=== PATIENT | male | born 1940 | race African-American/Black ===

== ENCOUNTER 2016-08-07 12:41 | Inpatient (IN) ==
[2016-08-07] MEDS ORDERED: CARDIZEM IV ONE (13:16)
[2016-08-07 13:47] LABS: MANUAL DIFF NEEDED? NO
[2016-08-07 13:49] LABS: BASO% 0.1 % (0.0-0.8); EOS# 0.08 X1000 (0.0-0.7); HEMOGLOBIN 14.1 g/dL (14.0-18.0); LYMPH# 1.35 X1000 (1.2-3.4); LYMPH% 16.2 % (20.5-51.1); MCH 36.1 PG (27-31); MCHC 35.3 g/dL (33-37); MCV 102.3 FL (81-99); MONO# 0.74 X1000 (0.11-0.59); MONO% 8.9 % (1.7-9.3); MPV 10.8 FL (7.4-10.4); NEUT% 73.8 % (42.2-75.2); PLT 109 X1000 (130-400); RBC 3.91 XMIL (4.7-6.1)
[2016-08-07 14:25] LABS: POTASSIUM 4.1 mmol/L (3.5-5.1); TOTAL BILIRUBIN 0.51 mg/dL (0.20-1.00); TOTAL PROTEIN 6.7 g/dL (6.3-8.3)
[2016-08-07 14:38] LABS: INR 1.12; PROTIME 11.9 Seconds (9.2-11.7); PTT 25.4 Seconds (22.0-36.0)
--- NOTE | 2016-08-07 14:53 | Diag Imaging Result Document ---
PROCEDURE NAME: CHEST-PORTABLE - 08/07/2016 SINGLE FRONTAL RADIOGRAPH OF THE CHEST: COMPARISON: 05/16/2015. FINDINGS: There is a stable calcified granuloma in the right lower lung zone. The lungs are clear otherwise. Cardiac silhouette is somewhat prominent but stable. Central vasculature is unremarkable. IMPRESSION: Stable cardiomegaly. No definite acute pathology.
--- NOTE | 2016-08-07 15:00 | ED EKG INTERP ---
This chart was entered by Paradise Salgado Scribe, acting as scribe for Ricci Fatima MD. EKG Interpretation - EKG Time of EKG reading by physician:: 12:56 EKG Read and Signed by:: Ricci Fatima EKG Interpretation (*Must complete 3 of following elements*): Abnormal Rate: 109 Rhythm: A-FLUTTER W/ VARIABLE AV BLOCK W/PVC'S AND PAC'S QRS: other (POSSIBLE INFERIOR INFARCT, AGE UNDETERMINED) ST Wave: normal This chart was documented by the indicated scribe, (Paradise Salgado Scribe) and accurately reflects the services I performed and decisions made by Kushal wong Wenli X, MD, as attested by the provider's signature.
--- NOTE | 2016-08-07 15:02 | PROVIDER DOCUMENTATION ---
This chart was entered by Paradise Salgado Scribe, acting as scribe for Ricci Fatima MD. HPI-General Adult - General Chief Complaint: Weakness Stated Complaint: WEAKNESS Time Seen by Provider: 08/07/16 12:58 Source: patient, family Allergies/Adverse Reactions: Patient Allergies Allergy/AdvReac Type Severity Reaction Status Date / Time Penicillins Allergy HIVES Verified 02/28/15 13:14 Home Medications: Home Medication List Medication Instructions Recorded Confirmed Last Taken Type Amiodarone [Cordarone] 200 mg PO DAILY 09/15/14 08/07/16 08/07/16 History Carvedilol [Coreg] 6.25 mg PO BID 09/15/14 08/07/16 08/07/16 History Hydralazine [Apresoline] 10 mg PO DAILY 09/15/14 08/07/16 08/07/16 History Isosorbide Dinitrate 10 mg PO DAILY 09/15/14 08/07/16 08/07/16 History Spironolactone 25 mg PO DAILY 09/15/14 08/07/16 08/07/16 History - History of Present Illness -Gen Adult Nature of Presenting Problems: PT IS A 76YOM PRESENTING TO THE ED C/O WEAKNESS. PTS FAMILY STATES OVER THE PAST WEEK PT HAS BECAME INCREASINGLY WEAKER THAN HIS NORMAL BASELINE. PT DENIES CP, SOB, N/V/D OR OTHER COMPLAINTS AT THIS TIME. PT IS NOTED TO HAVE NEW ONSET A -FIB W/RVR ON EKG. NO OTHER COMPLAINTS AT THIS TIME. Location of Pain/Injury: reports: none Pain Radiation: reports: no radiation Quality of Pain: reports: none Severity: reports: mild, moderate Onset/Duration: reports: 1 week ago Timing: reports: still present, getting worse Context/Activities at Onset: reports: light activity Modifying Factors: improves with: nothing Associated Symptoms: reports: weakness, trouble walking. denies: chest pain, diaphoresis, diarrhea, sinus congestion/drainage, nausea, shortness of breath, syncope, vomiting Similar Symptoms Previously?: No Recently seen or treated by another doctor?: No Review of Systems - Adult - REVIEW OF SYSTEMS - ADULT Constitutional: reports: no symptoms reported Eyes: reports: see HPI, other (JAUNDICE APPEARENCE IN HIS SCLERA) Ears, Nose, Mouth & Throat: reports: no symptoms reported Cardiovascular: reports: no symptoms reported Respiratory: reports: no symptoms reported Gastrointestinal: reports: no symptoms reported Genitourinary: reports: no symptoms reported Musculoskeletal: reports: see HPI, muscle weakness. denies: joint pain, muscle aches Integumentary: reports: no symptoms reported Neurological: reports: no symptoms reported Psychiatric: reports: no symptoms reported Endocrine: reports: no symptoms reported Hematologic/Lymphatic: reports: no symptoms reported Allergic/Immunologic: reports: no symptoms reported All Other Systems: Reviewed and Negative Past History - Adult - PAST MEDICAL HISTORY-ADULT Review of Records: reports: Old Records Reviewed, Nursing Assessment Review, Medications Reviewed, Social history reviewed & non-contributory. Major Childhood Illnesses: reports: denies history Cardiovascular: reports: denies history Respiratory: reports: denies history Gastrointestinal: reports: denies history Obstetrical/Gynecological: reports: denies history Genitourinary: reports: denies history Musculoskeletal: reports: denies history Neurological: reports: denies history Endocrine/Immune: reports: denies history Other Conditions: reports: denies history - IMMUNIZATION STATUS Childhood Immunizations: See Nurse Assessment Flu Vaccine: See Nurse Assessment - FAMILY HISTORY Family History: reviewed, not pertinent - SOCIAL HISTORY Smoking: cigarettes, less than 1 pack/day Provider spent 3-5 mins advising pt. on dangers of tobacco.: Discussed manners to quit use, and f/u contacts for add'l counseling. Substance Use: none/never, alcohol Alcohol Use Frequency: every day Number of drinks per typical drinking period:: 5-10 drinks Living Situation: family Physical Exam-General - PHYSICAL EXAM-ADULT Initial Vital Signs Reviewed: Yes - CONSTITUTIONAL General Appearance: appears well, alert, no apparent distress - EYES Eyes: PERRL/EOMI, scleral icterus - HEAD, EARS, NOSE, MOUTH & THROAT HENMT: normocephalic/atraumatic, moist mucous membranes, normal ENT inspection, TMs normal, pharynx normal - NECK Neck: non-tender, full range of motion, supple, normal inspection - RESPIRATORY Respiratory: chest non-tender, lungs clear, normal breath sounds, no pleuratic chest pain, no respiratory distress, no accessory muscle use - CARDIOVASCULAR Cardiovascular: normal peripheral pulses, no edema, no gallop, no JVD, no murmur , other (A-FIB W/RVR). negative: regular rate, rhythm - GASTROINTESTINAL (ABDOMEN) Abdominal Exam: normal bowel sounds, non tender, soft, no organomegaly, no pulsatile mass - LYMPHATIC Lymphatic: no adenopathy - MUSCULOSKELETAL Back Exam: normal inspection, no CVA tenderness, no vertebral tenderness Extremity: non-tender, no pedal edema, no calf tenderness, normal capillary refill, pelvis stable. 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 Sol for Dr. Chiu Consult Disposition: Admit Departure - Departure Time of Disposition Decision: 15:00 DIAGNOSIS: Elevated troponin A-fib Qualifiers: Atrial fibrillation type: unspecified Qualified Code(s): I48.91 - Unspecified atrial fibrillation CHF exacerbation Qualifiers: Congestive heart failure type: unspecified congestive heart failure type Qualified Code(s): I50.9 - Heart failure, unspecified Disposition: ADMITTED INPATIENT 09 Certified Medical Emergency: Emergent Condition: Stable - Critical Care Note This patient required my direct & personal management of CC.: No This chart was documented by the indicated scribe, (Paradise Salgado Scribe) and accurately reflects the services I performed and decisions made by me, Ricci Fatima MD, as attested by the provider's signature.
[2016-08-07 15:11] LABS: URINE SOURCE CLEAN CATCH
[2016-08-07 15:14] LABS: BILIRUBIN URINE NEGATIVE (NEGATIVE); BLOOD URINE NEGATIVE (NEGATIVE); COLOR YELLOW; GLUCOSE URINE NEGATIVE (NEGATIVE); LEUKOCYTES URINE MODERATE (NEGATIVE); NITRITE URINE NEGATIVE (NEGATIVE); PROTEIN URINE TRACE mg/dL (NEGATIVE); SP GRAVITY URINE 1.013; TURBIDITY URINE CLEAR (CLEAR); UROBILINOGEN URINE NORMAL (NORMAL)
[2016-08-07 15:16] LABS: URINE MICRO REVIEW NEEDED? YES
[2016-08-07 15:22] LABS: UR EPITHELIAL CELLS <10 /HPF (<10); URINE BACTERIA NEGATIVE /HPF; URINE CULTURE NEEDED? YES; URINE RBC <10 /HPF (<10)
[2016-08-07 15:34] LABS: URINE CASTS NONE SEEN
[2016-08-07] MEDS ORDERED: M.V.I.-12 10 ML, FOLIC ACID 1 MG, MAGNESIUM SULFATE 1 GM, THIAMINE 100 MG in NS 1,000 ML IV ONE (18:00)
[2016-08-07] MEDS: SODIUM CHLORIDE 0.9% INJ SCH (18:02)
[2016-08-07] MEDS: PROTONIX IV SCH (18:02)
[2016-08-07] MEDS: NICODERM PATCH TD SCH (18:02)
--- NOTE | 2016-08-07 18:13 | HISTORY AND PHYSICAL ---
CHIEF COMPLAINT: Weakness. HISTORY OF PRESENT ILLNESS: Mr. Martinez is a 76-year-old gentleman, patient of Dr. Chiu, not doing well the last few days. The patient was getting increasingly weak, unsteady. The patient is vague and a poor historian. The patient claims he had a few falls at home. In the emergency room, patient found to have atrial fibrillation with rapid ventricular response, chronic kidney disease, and renal failure. Patient lost significant weight. Patient claims he was very weak, had back pain, leg pain. He was not able to take care of himself, and we decided to admit patient for further care. Patient did have deterioration of his renal function. The patient denied any typical chest pain. He did have cough with scant sputum production. He denied any hemoptysis. No pleuritic type of chest pain. Vague abdominal pain. Mild nausea. No vomiting. The patient denied any diarrhea, blood or mucus in the stool. No dysuria or hematuria. Complaining of pain in the legs. No heat or cold intolerance. Patient is very vague and a poor historian. Generalized weakness. No focal weakness. No seizure type episode. Patient claims he drinks alcohol daily, at least a half pint of whiskey. His last drink was on . ALLERGIES: Penicillin. HOME MEDICATIONS: 1. Amiodarone. 2. Hydralazine. 3. Aldactone. 4. Coreg. 5. Imdur. PAST MEDICAL HISTORY: Significant for chronic kidney disease stage 2, congestive heart failure, ejection fraction was 30, NIDDM, hypertension, hyperlipidemia, spondylosis, paroxysmal atrial fibrillation, tobacco abuse, history of prostate cancer, and history of colon cancer. PAST SURGICAL HISTORY: Patient had right hemicolectomy for colon cancer and cancer in the cecum, back surgery, penile implant, radical prostatectomy for prostate cancer. SOCIAL HISTORY: Patient does smoke, drinks alcohol, denied substance abuse. FAMILY HISTORY: Noncontributory. Mother of stroke at age 48. Father of old age at 80. REVIEW OF SYSTEMS: As per HPI. PHYSICAL EXAMINATION: GENERAL: Elderly gentleman in mild distress. When patient in the ER, patient had telemetry showing atrial fibrillation with rapid VR. VITAL SIGNS: Blood pressure 117/70. Pulse 85. Respirations 18. Temperature 94.5. SKIN: Senile turgor. No rash or petechiae. HEENT: Head atraumatic, normocephalic. [place] conjunctivae. [place] sclerae. Extraocular muscle movement normal. Fundi cannot be penetrated. Good oral hygiene. No tonsillopharyngeal congestion. No exudate. Ears and nose benign. NECK: Supple. No JVD, thyromegaly, or lymphadenopathy. CHEST: Bilateral good air entry present. No rales. A few basal crepitations. CARDIOVASCULAR: S1 and S2 heard, 2/6 systolic murmur at the apex, no gallop or thrill. ABDOMEN: Soft. Mild epigastric tenderness. No guarding or rigidity. EXTREMITIES: No cyanosis or clubbing. No acute DVT. No acute vascular compromise. 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 Able to move all four limbs. LABORATORY DATA: WBC count 8.34, hemoglobin 14.1, hematocrit 40, platelet count 109. PT INR 1.12. PTT was 25.4. D-dimer was 2.94. BUN 26, creatinine 2.9. Troponin minimally elevated. Pro BNP 10,795. Urinalysis: Moderate leukocytes, 10-20 WBCs, suggestive of UTI. PROBLEMS: 1. Weakness. Patient does have multiple medical problems. 2. Atrial fibrillation with rapid ventricular response. Patient converted with one dose of IV Cardizem. 3. Patient does have urinary tract infection. 4. Deterioration in renal function suggestive of acute on chronic kidney disease. 5. Alcohol abuse. 6. Noninsulin dependent diabetes mellitus. 7. Hypertension. 8. Patient had elevated D-dimer. I am going to consider venous Doppler. We will not be able to get CT of the pulmonary artery. I will get vitamin B12 and folate level. Fall precautions. GI and DVT prophylaxis. Monitor patient on telemetry. Oxygen as per protocol. Overall plan discussed with the patient. Discussed at length alcohol and smoking cessation. Patient did have elevated troponin. Will do serial EKG and cardiac isoenzymes. Patient admission EKG noted. cc: MD Dennis Gonsales MD
[2016-08-07] MEDS: COREG PO SCH (19:31)
[2016-08-07] MEDS: ISORDIL PO SCH (19:31)
[2016-08-08] MEDS: COREG PO SCH ×3 (02:01→21:54)
[2016-08-08] MEDS: ISORDIL PO SCH ×3 (02:01→21:54)
[2016-08-08 05:24] LABS: MANUAL DIFF NEEDED? NO
[2016-08-08 05:50] LABS: BASO% 0.3 % (0.0-0.8); EOS# 0.13 X1000 (0.0-0.7); EOS% 2.1 % (0.0-10.0); HEMATOCRIT 34.2 % (42.0-52.0); LYMPH# 1.08 X1000 (1.2-3.4); LYMPH% 17.5 % (20.5-51.1); MCH 35.4 PG (27-31); MCHC 35.1 g/dL (33-37); MCV 100.9 FL (81-99); MONO# 0.45 X1000 (0.11-0.59); MONO% 7.3 % (1.7-9.3); MPV 10.6 FL (7.4-10.4); NEUT% 72.8 % (42.2-75.2); PLT 111 X1000 (130-400); RBC 3.39 XMIL (4.7-6.1)
[2016-08-08 05:56] LABS: FREE T4 1.29 ng/dL (0.93-1.70)
[2016-08-08 06:01] LABS: ALBUMIN 2.5 g/dL (3.5-5.0); TOTAL BILIRUBIN 0.35 mg/dL (0.20-1.00); TOTAL PROTEIN 5.3 g/dL (6.3-8.3)
[2016-08-08] MEDS ORDERED: CYANOCOBALAMIN IM ONE (06:32)
[2016-08-08] MEDS: ROCEPHIN 1 GM/NS 1 GM/50 ML IVPB IV SCH (07:05)
--- NOTE | 2016-08-08 07:08 | PROGRESS NOTE ---
DATE: 08/08/2016 SUBJECTIVE: Mr. Martinez is doing some better. He denied any chest pain. No palpitations. Patient was able to rest well. No symptoms suggestive of alcohol withdrawal. Mild cough, no expectoration. The patient is weak and poor historian. No dysuria or hematuria. Patient admitted with atrial fibrillation with rapid ventricular response. The patient also had elevated troponin. PHYSICAL EXAMINATION: Vital Signs: His vital signs noted. Neck: Supple. No JVD. Lungs: Bilateral good air entry present. No rales. CVS: S1 and S2 heard. A 2/6 systolic murmur at the apex. Abdomen: Soft. No distention. Bowel sounds present. Extremities: No cyanosis, clubbing. No acute DVT. 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 Able to move all 4 limbs. CONSIDERATION: 1. Atrial fibrillation with rapid ventricular response. Clinically, patient is doing better. Now in sinus rhythm with a rate of 63. The patient is on amiodarone. We will continue. 2. The patient had elevated D-dimer. I am going to get venous Doppler for further evaluation. 3. Acute on chronic kidney disease. The patient is getting gentle hydration with banana bag. 4. Alcohol abuse. 5. Urinalysis showing a urinary tract infection. The patient claims penicillin making him weak. He did not remember serious allergies. As per the emergency room, the patient had some high. I am going to try Rocephin. We will watch him closely for allergic reaction. With amiodarone on board, I am careful with quinolones. 6. Other problems include alcohol abuse. The patient had folate and B12 deficiency, and we will supplement. Electrolytes done today, BUN 25, creatinine 2.5. TSH 2.74, free T4 1.29. D- dimer was elevated. We will get venous Doppler for further evaluation. I will also get a V/Q scan to make sure no pulmonary embolism. cc: MD Dennis Gonsales MD
[2016-08-08] MEDS: NICODERM PATCH TD SCH (08:49)
[2016-08-08] MEDS: FOLIC ACID PO SCH (08:50)
[2016-08-08] MEDS: ATIVAN PO SCH ×3 (08:50→17:47)
[2016-08-08] MEDS: CORDARONE PO SCH (08:50)
[2016-08-08] MEDS ORDERED: ATIVAN PO SCH (09:00)
--- NOTE | 2016-08-08 11:16 | Diag Imaging Result Document ---
PROCEDURE NAME: LUNG SCAN / VQ - 08/08/2016 COMPARISON: None available. FINDINGS: A dose of 34.7 mCi of aerosolized technetium-99m DTPA was administered for the ventilation portion of the scan and 5.6 mCi of technetium-99m MAA was administered for the perfusion portion of the scan intravenously. No perfusion defects are identified on the perfusion portion of the scan. The ventilation portion the scan is also unremarkable. IMPRESSION: Negative V/Q scan.
[2016-08-08] MEDS: PROTONIX IV SCH (17:50)
[2016-08-08] MEDS: SODIUM CHLORIDE 0.9% INJ SCH (17:50)
--- NOTE | 2016-08-09 05:57 | EKG Report ---
Test Performed on : 08/08/2016 06:40:01 AM Test Reason : CP Blood Pressure : / mmHG Vent. Rate : 080 BPM Atrial Rate : 080 BPM P-R Int : 000 ms QRS Dur : 126 ms QT Int : 404 ms P-R-T Axes : 000 066 127 degrees QTc Int : 465 ms Atrial flutter. Nonspecific intraventricular block Nonspecific T wave abnormality Abnormal ECG When compared with ECG of 07-AUG-2016 12:56, Current undetermined rhythm precludes rhythm comparison, needs review QT has lengthened Confirmed by Raul LIN, Pawan Seth ([id number]) on 08/09/2016 11:23:12 AM
--- NOTE | 2016-08-09 06:14 | EKG Report ---
Test Performed on : 08/07/2016 12:56:40 PM Test Reason : WEAKNESS Blood Pressure : / mmHG Vent. Rate : 109 BPM Atrial Rate : 250 BPM P-R Int : 000 ms QRS Dur : 122 ms QT Int : 290 ms P-R-T Axes : 000 048 123 degrees QTc Int : 390 ms Atrial flutter. with variable AV block. with premature ventricular or aberrantly conducted complexes . Possible Inferior infarct , age undetermined Abnormal ECG When compared with ECG of 15-MAY-2015 19:22, Atrial flutter. has replaced Sinus rhythm. Vent. rate has increased BY 52 BPM Borderline criteria for Inferior infarct are now present ST no longer elevated in Inferior leads Nonspecific T wave abnormality now evident in Anterior leads QT has shortened Unconfirmed Result
[2016-08-09] MEDS: ROCEPHIN 1 GM/NS 1 GM/50 ML IVPB IV SCH (06:35)
[2016-08-09] MEDS: NICODERM PATCH TD SCH (08:53)
[2016-08-09] MEDS: CORDARONE PO SCH (08:54)
[2016-08-09] MEDS: ISORDIL PO SCH (08:54)
[2016-08-09] MEDS: FOLIC ACID PO SCH (08:54)
[2016-08-09] MEDS: ATIVAN PO SCH ×3 (08:54→16:56)
[2016-08-09] MEDS: COREG PO SCH ×2 (08:54→20:55)
--- NOTE | 2016-08-09 09:17 | PROGRESS NOTE ---
DATE: 08/09/2016 LEVEL OF DOCUMENTATION: Level 3 documentation. SUBJECTIVE: The patient was admitted over the weekend by Dr. Sandra. Admitted for weakness and intermittent atrial fibrillation and flutter. He was given Cardizem. REVIEW OF SYSTEMS: Palpitations, fatigue, and weakness. No chest pain, shortness of breath, PND, orthopnea. GI: No nausea, vomiting, abdominal pain. : No history of hesitancy or frequency. Past medical history, past surgical history, and medicines were reviewed. PHYSICAL EXAMINATION: Vital Signs: Afebrile, blood pressure is 83/55, 129 pounds, heart rate of 66. HEENT Examination: Within normal limits. Neck: Supple. Chest: Clear to auscultation. Heart: Heart sounds were irregular. Abdomen: Belly is soft, nontender. Good bowel sounds. Extremities: No peripheral edema, cyanosis, clubbing. Neurologic Examination: Nonfocal. DIAGNOSTIC DATA: Lungs scan, V/Q negative. Chest x-ray, stable cardiomegaly. Nothing acute. EKG, atrial flutter, well controlled. Urine cultures were negative. CBC: White cell count 6.1, hematocrit 34, MCV is high, platelets 111,000. SMA 7: Sodium 140, potassium 4 , chloride 111, BUN 25, creatinine 2.5. Positive troponin, negative cardiac enzymes. Plasma alcohol level is negative. Folate is low, B12 of 312. ASSESSMENT AND PLAN: 1. Ischemic cardiomyopathy with intermittent atrial flutter. Seen by Dr. Ferrell. We will ask cardiology consult. 2. Folate deficiency. Multivitamin 1 tablet daily. 3. B12 deficiency, on B12 replacement. 4. Possible urinary tract infection. Followup urine cultures were negative. 5. Chronic tobacco abuse, on nicotine cessation program. 6. Paroxysmal atrial fibrillation with ischemic cardiomyopathy, on isosorbide, Coreg, and Cordarone. Surveillance normal chest x-ray, normal liver function tests, and normal thyroid function tests. 7. Disposition. We will discuss with Dr. Ferrell and physical therapy evaluation. We will follow up. LEVEL OF DOCUMENTATION: 35 minutes. cc: Dennis Chiu MD MTDD
[2016-08-09 12:00] LABS: ALLEN TEST YES; BE -6.3 mmoll (-3.0-3.0); BLOOD TYPE ARTERIAL; DRAW SITE R RADIAL; METHB 1.3 % (0.0-1.5); O2(CT) 16.1 mL/dL (15.0-23.0); PCO2(98.6) 28 mmHg (35-45); PO2(98.6) 91 mmHg (60-100); SAMPLE BLOOD; SAO2 98.8 % (95.0-100.0); THB 11.9 g/dL (11.5-17.4)
[2016-08-09 12:02] LABS: MODALITY ROOM AIR
--- NOTE | 2016-08-09 12:57 | CONSULTATION ---
DATE OF CONSULTATION: 08/09/2016 INDICATION: Diffuse weakness, atrial fibrillation. HISTORY OF PRESENT ILLNESS: Mr. Martinez is a 76-year-old black male with a history of ischemic cardiomyopathy and atrial fibrillation, normally follows with Dr. Ferrell. The patient presented to the ER with apparent complaints of increasing weakness as well as falls. The patient is an extremely poor historian. I interviewed him in the echo lab and patient is falling asleep multiple times during the course of the history. He wakes up and gives brief, 2-3 word answers. He denies any significant shortness of breath or orthopnea. No heart racing. No chest pain. He reports he has been eating and drinking at home as per usual and continues to drink alcohol on the order of a half a pint to a pint per day. Last drink was apparently on prior to admission. No hematuria. No dysuria. No recent fevers. No vomiting. PAST MEDICAL HISTORY: Significant for: 1. Chronic kidney disease. 2. Systolic heart failure. His last ejection fraction was 35 to 40% by echo in 2012. He had moderate MR on that study. In addition, he had a nuclear scan in August of 2014 demonstrating an EF of 28 to 33% with a scar in the inferior and lateral wall that was large. 3. Noninsulin-dependent diabetes mellitus. 4. Hypertension. 5. Hyperlipidemia. 6. Paroxysmal atrial fibrillation. 7. Tobacco abuse. 8. History of prostate cancer. 9. History of colon cancer. 10. History of alcohol abuse. SOCIAL HISTORY: Patient currently smokes. He is not able to clarify exactly how much. Alcohol use per the HPI. FAMILY HISTORY: Noncontributory. Mother of a stroke at age 48. Father of old age at 80. REVIEW OF SYSTEMS: A 10 system review of systems is negative except for those things mentioned in the HPI. PHYSICAL EXAMINATION: Vital signs: He is afebrile. During the majority of this hospitalization his heart rates have been in the 70s to 90s. He has had occasional 100s to 110s. Blood pressure 105/57. General: No acute distress. Somewhat ill-appearing, uncooperative male. HEENT: Oropharynx is moist. Poor dentition. Eye examination shows pink conjunctivae. White sclerae. Neck: Examination shows no obvious thyromegaly or thyroid tenderness. Cardiovascular: He sounds to be in a regular rate and rhythm. I did not hear any obvious murmurs. He has no S3. He had no lower extremity edema. He has warm and well perfused lower extremities. Chest: Exam sounded clear to auscultation bilaterally. He was very uncooperative with the exam. No increased work of breathing. Abdomen: Soft, nontender, nondistended. He has no obvious organomegaly. Skin Exam: Warm and dry throughout. Neurological: He seems to moving all extremities well. Again, he is uncooperative with the examination. Psychiatric: The patient is somewhat somnolent during the exam. Does not participate very well. Wakes up and give 2-3 word sentences. PERTINENT DATA: V/Q scan here was negative. His chest x-ray shows evidence for cardiomegaly. No definite acute chest pathology. EKG August 07 at 12:56 shows atrial fibrillation, rate of 109 beats per minute. PVC versus aberrantly conducted beat noted. Second EKG August 08 at 6:40 shows rate controlled atrial fibrillation at a rate 80 beats per minute. Laboratory data shows a white count of 6.1, hematocrit 34, platelet count 111,000. Sodium 140, potassium 4, BUN 25, creatinine 2.5. Cardiac enzymes have been elevated with initial of 0.108, subsequent 0.109, 0.096, and 0.133 for the last 1. Thyroids are normal. Urinalysis had 10-20 WBCs. Serum alcohol was negative. ProBNP 10,795. ASSESSMENT: 1. Failure to thrive in a patient with alcoholism and noted weight loss. 2. Severe mitral regurgitation noted on echo, along with a reduced ejection fraction. PLAN: We will work from medication titrations initially. I will stop his nitrates secondary to his somewhat low blood pressure and place him on hydralazine at a dose of 12.5 mg b.i.d. Continue him on his current dose of Coreg. I have stopped his amiodarone as he seems to be rate controlled and tolerating his atrial fibrillation presently. I will add in digoxin at 0.0625 daily. We will follow up on the full report of the echo. cc: MD Dennis Costa MD
--- NOTE | 2016-08-09 14:42 | ECHO REPORT ---
ORDER DATE: 08/09/2016 ECHOCARDIOGRAPHIC MEASUREMENTS: 1. Interventricular septum 1.2. Left ventricular posterior wall 1.2. Diastolic diameter 6.4. Left atrium 5. Aorta 3.5. 2. Dilated left ventricle with reduced systolic function. Estimated ejection fraction of 30- 35%. There is severe global hypokinesis. 3. Mitral valve was normal. Aortic valve leaflets were trileaflet. Pulmonic valve was normal. 4. Peak velocity across the aortic valve less than 2 m/sec. There is no aortic stenosis. There is mild aortic regurgitation. There is moderate to severe mitral regurgitation. There is mild tricuspid regurgitation. Peak velocity across the tricuspid valve was 2.5 m/sec. Pulmonary systolic pressure of 35-40 mm/Hg. There is left atrial enlargement. 5. There is no pericardial effusion or obvious intracardiac mass or thrombus seen. cc: MD Nuha Aguilar PA Jagan Reddy, MD
[2016-08-09] MEDS: SODIUM CHLORIDE 0.9% INJ SCH (16:56)
[2016-08-09] MEDS: PROTONIX IV SCH (16:57)
--- NOTE | 2016-08-09 19:18 | Extremity Venous Study ---
PROCEDURE NAME: Venous U/S Bilateral Legs - 08/08/2016 BILATERAL LOWER EXTREMITY VENOUS IMAGES: REFERRING PHYSICIAN: Kenn Sandra MD. INTERPRETING PHYSICIAN: Matteo Aponte MD. LOOP TACKER: Adam. INDICATION: The patient has an elevated D-dimer. FINDINGS: Bilateral lower extremity venous images accomplished. The common femoral, superficial femoral, deep femoral, popliteal, posterior tibial, peroneal, and greater saphenous are imaged. Doppler is used to evaluate the veins for spontaneity, phasicity, respiratory excursion, and distal augmentation. All veins are compressible. No intraluminal clot is seen. INTERPRETATION: No evidence of deep or superficial venous thrombosis in either lower extremity veins identified. cc: MD Kenn Guerrero MD Jagan Reddy, MD
[2016-08-09] MEDS: APRESOLINE PO SCH (20:56)
[2016-08-10] MEDS: APRESOLINE PO SCH ×3 (08:43→20:39)
[2016-08-10] MEDS: NICODERM PATCH TD SCH (08:43)
[2016-08-10] MEDS: FOLIC ACID PO SCH (08:43)
[2016-08-10] MEDS: ROCEPHIN 1 GM/NS 1 GM/50 ML IVPB IV SCH (08:44)
[2016-08-10] MEDS: COREG PO SCH ×2 (08:53→20:39)
[2016-08-10] MEDS ORDERED: LANOXIN PO SCH (09:00)
--- NOTE | 2016-08-10 09:06 | PROGRESS NOTE ---
DATE: 08/10/2016 SUBJECTIVE: The patient was seen by Dr. Kan. I discussed the patient's son. He has been drinking alcohol. He is awake. No symptoms of DTs noted. REVIEW OF SYSTEMS: Denies of any complaints. OBJECTIVE: Vital Signs: On examination, he is afebrile. Pulse is 50, blood pressure is 90/60. HEENT: Exam within normal limits. Neck: Supple. No lymphadenopathy. Chest: Clear. Heart: Sounds are regular. Abdomen: Belly is soft, nontender. Good bowel sounds. Extremities: No peripheral edema, cyanosis. Neurological: No obvious neurological deficits. INVESTIGATIONS: S-PEP was negative. Urine cultures showed mixed libia. Echocardiography: Severe MR. EF is 35%. ASSESSMENT AND PLAN: 1. Fatigue and weakness. Continue on folic acid and B 12. 2. Paroxysmal atrial fibrillation with ischemic cardiomyopathy, currently in normal sinus. He was seen by Dr. Kan. He ordered a low dose of digitalis 62.5 mcg daily, hydralazine 12.5 p.o. b.i.d., Aldactone, Coreg 6.25 p.o. b.i.d., discontinue Isosorbide. 3. Urinary tract infection. Follow up urine cultures were negative. 4. Chronic kidney disease. Stable. 5. Disposition: Improve the activity and waiting for residential placement. 6. Alcohol use. No signs of deep vein thrombosis noted. Plan of care discussed with the son. LEVEL OF DOCUMENTATION: 35 minutes. cc: Dennis Chiu MD MTDD
[2016-08-10] MEDS: ALDACTONE PO SCH (10:01)
--- NOTE | 2016-08-10 14:39 | PROGRESS NOTE ---
DATE: 08/10/2016 SUBJECTIVE: Mr. Martinez reports he is doing somewhat better today. He does not currently have any complaints. OBJECTIVE: Vital Signs: On physical examination, he has been somewhat hypothermic this morning with oral temperatures in the 94-95 range. He was afebrile otherwise. Heart rate 60 and blood pressure 97/56. General: No acute distress. Cardiovascular: He sounds to be in a regular rate and rhythm. He has no obvious murmurs. No S3. He has no lower extremity edema. Chest: Exam sounds clear bilaterally. He has no increased work of breathing. Abdomen: Soft, nontender, nondistended. He has no obvious organomegaly. Skin Exam: Warm and dry throughout. PERTINENT DATA: His telemetry continues to show what appears to be atrial fibrillation that is rate controlled. However, it does appear that in the last 24 hours he has converted over into sinus. This appears to have happened on the eighth at around 1335 hours. His laboratory data shows a white count of 6.1 on the seventh, hematocrit of 34.2. Chemistries have not been checked today. ASSESSMENT: 1. Atrial fibrillation. 2. Cardiomyopathy with severe mitral regurgitation. PLAN: We adjusted medications significantly yesterday, including digoxin, hydralazine and carvedilol. We will continue on those medications presently. He previously was on amiodarone at a dose of 200 mg daily. I would likely reinstitute that or have him follow up with Dr. Ferrell in the near future for re-evaluation. cc: MD Dennis Costa MD
[2016-08-10] MEDS: PROTONIX IV SCH (17:15)
[2016-08-11] MEDS: FOLIC ACID PO SCH (08:28)
[2016-08-11] MEDS: NICODERM PATCH TD SCH (08:28)
[2016-08-11] MEDS: APRESOLINE PO SCH (08:29)
[2016-08-11] MEDS: ALDACTONE PO SCH (08:29)
[2016-08-11] MEDS: COREG PO SCH (08:29)
[2016-08-11] MEDS ORDERED: CORDARONE PO SCH (09:00)
--- NOTE | 2016-08-11 09:35 | DISCHARGE SUMMARY ---
ADMISSION DATE: 08/07/2016 DISCHARGE DATE: 08/11/2016 DISCHARGE DIAGNOSES: 1. Paroxysmal atrial fibrillation. 2. Chronic kidney disease. 3. History of alcohol abuse. 4. History of tobacco abuse. 5. Type 2 diabetes. 6. Hypertension. 7. Vitamin B12 deficiency. 8. Folic acid deficiency. 9. Hyperkalemia due to SEGUNDO inhibitors. 10. History of prostate cancer. 11. History of colon cancer. PROCEDURES: 1. Echocardiography report, LV systolic function is 35%, severe global hypokinesis, moderate to severe MR. 2. Lung scan V/Q negative, low probability of PE. 3. Extremity venous studies, no evidence of deep vein thrombosis. CONSULTS: Dr. Teodoro Kan/Dr. Ferrell. BRIEF HISTORY: Please see the H and P that was done by Dr. Sandra. In brief, he is a 76-year- old, pleasant, gentleman basically admitted to the hospital with weakness, shortness of breath, rapid atrial fibrillation. The patient has ischemic cardiomyopathy. He was not able to tolerate SEGUNDO inhibitors in light of low EF due to hypertension, azotemia, and hyperkalemia. The patient has been under the care of Dr. Ferrell. Nevertheless, the patient is noncompliant. He is not a candidate for anticoagulation due to noncompliance. He was given Cardizem, converted to sinus. The patient is stable. He also has a positive D-dimer. Subsequent workup was negative for venous thromboembolism. He also has B12 and folic acid deficiency, and replaced. He was given Nicotrol patches. There were no signs of DTs noted. At the request of the family, he is being transferred to rehab for convalescence. LABORATORIES: At the time of discharge, as follows. CBC: White cell count 6.1, hematocrit 34, MCV 100, platelets 111,000. PT 11, INR 1.1. ABG on room air, pH is 7.4, pCO2 28, PO2 90 on room air. SMA 7: Sodium 140, potassium 4, chloride 111, BUN 25, creatinine 2.5, calcium 9. SPEP was negative. B12 302, folic acid 3.2. TSH and free T4 are normal. Plasma alcohol was negative. Microbiology cultures were mixed florae. RADIOLOGY PROCEDURES: Chest x-ray, stable cardiomegaly. No definitive acute pathology noted. DISCHARGE INSTRUCTIONS: Pneumococcal vaccine 2015. Aldactone 25 daily, isosorbide 10 daily, hydralazine 10 daily, Coreg 6.25 p.o. b.i.d., Cordarone 200 daily, folic acid 1 mg daily, cyanocobalamin, vitamin B12 2000 mcg daily. Not able to tolerate SEGUNDO inhibitors and noncompliant anticoagulation. Abstain from smoking and drinking. Follow up with Dr. Ferrell as well as in my office. cc: MD Emmett Lemus MD
[2016-08-11 11:39] VITALS: BP 115/68
--- NOTE | 2016-08-11 13:45 | PROGRESS NOTE ---
DATE: 08/11/2016 SUBJECTIVE: Mr. Martinez reports he is doing much better. He is continuing to ambulate with assistance around the room. OBJECTIVE: Vital signs: He is afebrile, heart rate is 62, blood pressure 115/68. His telemetry currently shows he is in sinus rhythm. General: No acute distress. Cardiovascular: He is in a regular rate and rhythm. No murmurs. He has no S3. He has no lower extremity edema. Chest: Clear bilaterally. He has no increased work of breathing. Abdomen: Soft, nontender, nondistended. He has no obvious organomegaly. Skin Exam: Warm and dry throughout without any rashes PERTINENT DATA: He has no recent chemistry data. ASSESSMENT: 1. Atrial fibrillation. 2. Weakness. PLAN: We will continue with current medications. He seems to be doing much better. I will recommend follow up with Dr. Ferrell as an outpatient as already has been arranged to consider further adjustments in medications. cc: MD Dennis Costa MD
== END 2016-08-11 15:50 ==
LOC: ED 12:41 → 3S 16:00
PROVIDERS: ADMIT Internal Medicine; ATTEND Internal Medicine

== ENCOUNTER 2016-10-24 18:15 | Inpatient (IN) ==
[2016-10-24] MEDS ORDERED: NS 2,000 ML ONE (18:21)
[2016-10-24 18:38] LABS: MANUAL DIFF NEEDED? NO
[2016-10-24] MEDS ORDERED: NS 500 ML ONE (18:42)
[2016-10-24] MEDS ORDERED: NEO-SYNEPHRINE ONE (18:42)
[2016-10-24] MEDS ORDERED: NEO-SYNEPHRINE 50 MG in NS 250 ML IV SCH ×2 (18:45→20:15)
[2016-10-24 18:47] LABS: BE -11.9 mmoll (-3.0-3.0); BLOOD TYPE ARTERIAL; DRAW SITE R BRACHIAL; O2(CT) 12.2 mL/dL (15.0-23.0); PCO2(98.6) 29 mmHg (35-45); PO2(98.6) 83 mmHg (60-100); SAMPLE BLOOD; SAO2 97.3 % (95.0-100.0); THB 9.1 g/dL (11.5-17.4); pH(98.6) 7.28 (7.35-7.45)
--- NOTE | 2016-10-24 18:48 | EKG Report ---
Test Performed on : 10/24/2016 6:33:26 PM Test Reason : AMS Blood Pressure : / mmHG Vent. Rate : 079 BPM Atrial Rate : 079 BPM P-R Int : 222 ms QRS Dur : 100 ms QT Int : 426 ms P-R-T Axes : 082 066 097 degrees QTc Int : 488 ms Sinus rhythm. with 1st degree AV block. Possible Inferior infarct , age undetermined ST \T\ T wave abnormality, consider anterolateral ischemia Abnormal ECG When compared with ECG of 08-AUG-2016 06:40, Sinus rhythm. has replaced Atrial flutter. QRS duration has decreased Nonspecific T wave abnormality no longer evident in Inferior leads Inverted T waves have replaced nonspecific T wave abnormality in Anterolateral leads Unconfirmed Result
[2016-10-24 18:50] LABS: ALLEN TEST YES; MODALITY CANNULA
[2016-10-24 18:59] LABS: BASO% 0.2 % (0.0-0.8); EOS# 0.01 X1000 (0.0-0.7); EOS% 0.1 % (0.0-10.0); HEMATOCRIT 27.5 % (42.0-52.0); HEMOGLOBIN 9.3 g/dL (14.0-18.0); IMM GRAN# 0.11 X1000 (0.0-0.04); INR 1.57 (0.86-1.15); LYMPH# 0.66 X1000 (1.2-3.4); LYMPH% 5.8 % (20.5-51.1); MCH 31.6 PG (27-31); MCHC 33.8 g/dL (33-37); MCV 93.5 FL (81-99); MONO% 10.6 % (1.7-9.3); MPV 11.2 FL (7.4-10.4); NEUT% 82.3 % (42.2-75.2); PLT 133 X1000 (130-400); RBC 2.94 XMIL (4.7-6.1)
[2016-10-24 19:04] LABS: PTT PL 34.9 Seconds (22.6-43.9)
[2016-10-24] MEDS ORDERED: NS 1,000 ML IV PRN ×2 (19:09→20:43)
[2016-10-24 19:15] LABS: ALBUMIN 1.9 g/dL (3.5-5.0); CALCIUM 7.3 mg/dL (8.8-10.2); POTASSIUM 4.7 mmol/L (3.5-5.1); TOTAL BILIRUBIN 0.4 mg/dL (0.20-1.00); TOTAL PROTEIN 5.2 g/dL (6.3-8.3)
[2016-10-24] MEDS: NS 1,000 ML IV ONE ×2 (19:15→22:39)
[2016-10-24 19:36] LABS: CK INDEX 1.1 (0.0-2.5); CK-MB 5.68 ng/mL (0.0-5.0)
[2016-10-24 19:58] LABS: BILIRUBIN URINE NEGATIVE (NEGATIVE); BLOOD URINE 3+ (NEGATIVE); CLARITY VERY CLOUDY (CLEAR); COLOR AMBER; GLUCOSE URINE NEGATIVE (NEGATIVE); LEUKOCYTES URINE 2+ (NEGATIVE); NITRITE URINE POSITIVE (NEGATIVE); PH URINE 6.5; SP GRAVITY URINE 1.015; UROBILINOGEN URINE NORMAL
[2016-10-24] MEDS ORDERED: LEVAQUIN 750 MG/D5W 750 MG/150 ML IVPB IV ONE (20:04)
[2016-10-24] MEDS ORDERED: NS 1,000 ML IV SCH ×2 (20:07→22:50)
[2016-10-24 20:10] LABS: URINE WBC 20-40 /HPF (<10)
[2016-10-24 20:11] LABS: URINE CAST NONE SEEN /LPF; URINE CRYSTAL NONE SEEN /HPF; URINE CULTURE PL NEEDED? YES; URINE EPITHELIAL CELLS <10 /HPF (<10); URINE RBC 20-40 /HPF (<10); URINE SOURCE CLEAN CATCH
[2016-10-24] MEDS ORDERED: PROTONIX 80 MG in NS 80 ML IV SCH (21:00)
[2016-10-24] MEDS ORDERED: VITAMIN K SUBQ ONE (22:41)
[2016-10-24] MEDS: DOPAMINE 800 MG/D5W 800 MG/500 ML IV.SOLN IV SCH (22:42)
[2016-10-24] MEDS ORDERED: TYLENOL PO PRN (22:46)
[2016-10-24] MEDS ORDERED: VITAMIN K 10 MG in NS 50 ML IV ONE (22:57)
[2016-10-24 23:33] LABS: HEMATOCRIT 35.4 % (42.0-52.0); HEMOGLOBIN 11.8 g/dL (14.0-18.0)
--- NOTE | 2016-10-24 23:38 | HISTORY AND PHYSICAL ---
CHIEF COMPLAINT: Weakness. Hypotension. Decreased responsiveness. HISTORY OF PRESENT ILLNESS: Briefly is a 76-year-old male with history of CHF, confusion who presents with confusion and weakness for the last 24 hours. Apparently, he was seen on the after a fall, looks like Dr. Berry saw him in the ER, he fell and hurt his back, I think apparently he was inebriated and incontinent of bladder. Workup was negative. He had some renal insufficiency creatinine 2.1, hemoglobin and hematocrit 12 and 37. He had a compression fracture and he clinically improved. He was discharged on NSAIDs, I think he was discharged on Naprosyn and Joppa. His renal function he has renal insufficiency but he hovers close to 2 in any case but it was 2.1 and he was put on NSAIDs. In any case, the patient came in for evaluation. In the ER he was minimally responsive, hypotensive with blood pressures in the 60s and 70s systolic. He was given IV fluids and improved but I think he did get a total of 2 L of fluid. He was evaluated and while he was in the ER he had I think at least 2 episodes of rectal bleeding. One was reported as hematochezia but the other was reported as dark tarry stools. I do not think a Hemoccult was done. In any case his hemoglobin and hematocrit had dropped as well from admission or from he usually is around 11 and 33, 12 and 37, he was on the , he has dropped to 9 and 27. Discharge condition was stable and he was sent over here for hypotension, acute kidney injury and acute GI bleed. PAST MEDICAL HISTORY: 1. He has hypertension. 2. Congestive heart failure with reported EF of around 30%. I do not have an echocardiogram recently but this may have been done as an outpatient. 3. Chronic renal failure stage 2 although I think he has been higher than that previously. 4. Type 2 diabetes. 5. Hypertension. 6. Dyslipidemia. 7. Paroxysmal atrial fibrillation. 8. History of prostate cancer. 9. History of colon cancer. PAST SURGICAL HISTORY: 1. Right hemicolectomy. 2. Penile implant. 3. Radical prostatectomy. ALLERGIES: Penicillin. No reported anticoagulant or anti-platelet. SOCIAL HISTORY: He has had a 60 pack year history. He drinks alcohol socially but I think he probably drinks a little bit more extensively. FAMILY HISTORY: His mother had CVA 48 per family history. REVIEW OF SYSTEMS: A 10 point review of systems was otherwise negative. PHYSICAL EXAMINATION: VITAL SIGNS: Blood pressure 79/53, heart rate 67, respiratory rate 18, temperature was 98 degrees, 99 on room air. CARDIOVASCULAR: Regular rate and rhythm. PULMONARY: Bilateral breath sounds. Clear to auscultation. GI: Soft, nontender, nondistended. Bowel sounds are positive. EXTREMITIES: No clubbing or cyanosis. LYMPHATICS: No peripheral edema. NEUROLOGICAL: Nonfocal. HEENT: Pupils equal, round, reactive to light. Extraocular movements were intact. Conjunctivae were pale. NECK: Supple. CARDIOVASCULAR EXAM: Was regular rate, rhythm. No murmurs, gallops or rubs. NEURO EXAM: Was nonfocal. MUSCULOSKELETAL: 4-5 on all 4 extremities. NEURO: He was lethargic but he did respond to questions although he drifted off to sleep pretty rapidly. LABORATORY DATA: Hemoglobin and hematocrit is 9 and 27, white count 11, platelets 133,000. Chemistries, sodium 147, BUN and creatinine of 52 and 5.6, bicarb of 12. UA was positive nitrite, 20-40 red blood cells, 20-40 white blood cells. PROBLEM LIST: A 76-year-old male coming in with hypotension and gastrointestinal bleed, acute kidney injury. 1. Acute gastrointestinal bleed possibly an upper gastrointestinal bleed. We will continue volume resuscitation, blood pressure support, I think he will likely need blood transfusions. He has been typed and crossed for 2 units. I am going to repeat his hemoglobin and hematocrit 1st and see where we are at, we will continue volume resuscitated measures. We have also placed him on vitamin K for some mild coagulopathy INR 5, additionally he has been on a Protonix drip. 2. Shock. He has gotten 2 L of fluid with his EF, there is going to be high risk of volume overload so we will continue gentle hydration but I have initiated dopamine and follow closely. 3. Congestive heart failure appears to be compensated. Again, he is on the low and we will repeat his cardiac enzymes and follow. 4. Urinary tract infection. He has been started on Levaquin. We will continue to monitor that. 5. Acute kidney injury likely a combination of nonsteroidal anti-inflammatory drugs, hypotension. We will check urine electrolytes. Pursue renal ultrasound tomorrow and follow closely. I have gone ahead and consulted Dr. Lopez because I think he has seen him in the past and additionally since acute kidney injury is stable. 6. He will resume care in the morning. CRITICAL CARE TIME FOR VASOPRESSORS: Greater than 35 minute critical care time. cc: MD Dr. Aram Muse
[2016-10-24] MEDS: PROTONIX 80 MG in NS 80 ML IV SCH (23:46)
[2016-10-24] MEDS ORDERED: NS 250 ML IV SCH (23:56)
[2016-10-25 00:39] LABS: CK INDEX 1.1 (0.0-2.5); CK-MB 19.68 ng/mL (0.0-5.0)
[2016-10-25 05:32] LABS: BASO% 0.3 % (0.0-0.8); EOS# 0.08 X1000 (0.0-0.7); EOS% 0.8 % (0.0-10.0); HEMATOCRIT 35.5 % (42.0-52.0); IMM GRAN# 0.07 X1000 (0.0-0.04); IMM GRAN% 0.7 % (0.0-0.5); LYMPH% 7.8 % (20.5-51.1); MANUAL DIFF NEEDED? YES; MCH 31.7 PG (27-31); MCHC 33.8 g/dL (33-37); MCV 93.9 FL (81-99); MONO% 11.7 % (1.7-9.3); MPV 11.5 FL (7.4-10.4); NEUT% 78.7 % (42.2-75.2); PLT 160 X1000 (130-400); RBC 3.78 XMIL (4.7-6.1)
[2016-10-25 06:10] LABS: UR CREAT RANDOM 89.9 mg/dL (14-26); UR PROT RANDOM 132.5 mg/dL
[2016-10-25 06:11] LABS: ALBUMIN 2.1 g/dL (3.5-5.0); CALCIUM 8.2 mg/dL (8.8-10.2); POTASSIUM 5.9 mmol/L (3.5-5.1); TOTAL BILIRUBIN 0.73 mg/dL (0.20-1.00); TOTAL PROTEIN 6.2 g/dL (6.3-8.3)
[2016-10-25] MEDS: HUMULIN R SUBQ SCH ×4 (06:26→20:55)
[2016-10-25 06:49] LABS: BANDS 14 % (0-1); LYMPHS 8 % (21-51); MONO 12 % (1-9)
--- NOTE | 2016-10-25 07:14 | Diag Imaging Result Doc PS360 ---
EXAM: CHEST-PORTABLE HISTORY: GI BLEED TECHNIQUE: AP portable chest at 0600 semiupright COMMENT: There is atelectasis in the right upper lobe which was not present on 08/07/2016. Otherwise, there is been no significant change. IMPRESSION: Left upper lobe atelectasis. Electronically signed by Sherif Velazquez 10/25/2016 7:12 AM
[2016-10-25 08:31] LABS: BASO% 0.3 % (0.0-0.8); EOS# 0.09 X1000 (0.0-0.7); EOS% 0.9 % (0.0-10.0); HEMATOCRIT 35.4 % (42.0-52.0); HEMOGLOBIN 12.2 g/dL (14.0-18.0); IMM GRAN# 0.05 X1000 (0.0-0.04); IMM GRAN% 0.5 % (0.0-0.5); LYMPH# 0.69 X1000 (1.2-3.4); LYMPH% 7.2 % (20.5-51.1); MANUAL DIFF NEEDED? YES; MCH 31.9 PG (27-31); MCHC 34.5 g/dL (33-37); MCV 92.7 FL (81-99); MONO# 1.23 X1000 (0.11-0.59); MONO% 12.9 % (1.7-9.3); MPV 11.3 FL (7.4-10.4); NEUT% 78.2 % (42.2-75.2); PLT 151 X1000 (130-400); RBC 3.82 XMIL (4.7-6.1)
[2016-10-25 08:37] LABS: URINE SOURCE CATH
[2016-10-25 08:42] LABS: BILIRUBIN URINE NEGATIVE (NEGATIVE); BLOOD URINE MODERATE (NEGATIVE); COLOR ORANGE; GLUCOSE URINE NEGATIVE (NEGATIVE); LEUKOCYTES URINE LARGE (NEGATIVE); NITRITE URINE NEGATIVE (NEGATIVE); PH URINE 5.5; PROTEIN URINE 70 mg/dL (NEGATIVE); SP GRAVITY URINE 1.015; TURBIDITY URINE TURBID (CLEAR); UROBILINOGEN URINE NORMAL (NORMAL)
[2016-10-25 08:44] LABS: URINE MICRO REVIEW NEEDED? YES
[2016-10-25 08:48] LABS: UR EPITHELIAL CELLS <10 /HPF (<10); URINE BACTERIA 4+ /HPF; URINE WBC TNTC /HPF (<10)
[2016-10-25 08:57] LABS: BANDS 12 % (0-1); LYMPHS 8 % (21-51); MONO 18 % (1-9)
[2016-10-25] MEDS: PROTONIX 80 MG in NS 80 ML IV SCH ×2 (09:18→19:45)
--- NOTE | 2016-10-25 12:08 | Diag Imaging Result Doc PS360 ---
EXAM: US ABDOMEN-COMPLETE HISTORY: lamine TECHNIQUE: Transabdominal, portable COMMENT: The study is somewhat suboptimal due to the portable technique and the patient's condition and body habitus. The aorta and inferior vena cava are normal in appearance where there are visible. They are largely obscured by bowel gas however. The pancreas is obscured by gas. The gallbladder is distended to over 11 cm. There are no definite stones or para cholecystic fluid and there is no sonographic Pfeiffer sign. The common bile duct is 3 mm, and there is antegrade flow in the portal vein. The liver is otherwise unremarkable in appearance. The spleen is not well demonstrated. The kidneys are without evidence of hydronephrosis or mass. The right kidney is 9.7 x 3.5 x 5.2 cm the left is 9.5 x 4.1 x 5.5 cm. Both are slightly atrophic in appearance but normal in echogenicity. Compared to the previous study of and September 2014, there has been no significant change in the appearance of the kidneys. IMPRESSION: No evidence of acute intra-abdominal disease. The distention of the gallbladder may be due to a fasting state. Clinical correlation is recommended. Electronically signed by Sherif Velazquez 10/25/2016 12:06 PM
--- NOTE | 2016-10-25 13:17 | CONSULTATION ---
DATE OF CONSULTATION: 10/25/2016 REASON FOR CONSULTATION: Acute kidney injury. History is obtained entirely from the chart. HISTORY OF PRESENT ILLNESS: Mr. Martinez is a 76-year-old black man with a history of systolic heart failure with LVEF of approximately 30. He also has known chronic kidney disease with baseline creatinine of around 2, diabetes, hypertension, hyperlipidemia, atrial fibrillation, etc. He is awake and alert and answers me but answers all questions in the negative, stating he does not know why he is at the hospital and does not remember when he came into the hospital and denies all symptoms. The notes indicate that he was brought to the emergency room because of confusion and weakness for the last 24 hours prior to admission. He was seen at this hospital on the following a fall and was treated with Husser and Naprosyn. At that time his creatinine was 2.1. His evaluation in the emergency room found significant hypotension and possible rectal bleeding. On these bases he was admitted to the intensive care unit. He was treated with volume resuscitation such that he is over 3 L positive since admission. Despite this, his blood pressure remains marginally low, though it has improved. Specifically, over the 1st 2 hours his systolic blood pressure ranged between 69 and 85 and in the last hour he has been 92-100 systolic. PAST MEDICAL HISTORY: As above. He also has a history of CA prostate and CA colon. ALLERGIES: Penicillin. SOCIAL HISTORY: Sixty pack year smoking history and probable alcohol abuse. FAMILY HISTORY: CVA. HOME MEDICATIONS: Have not been identified. PHYSICAL EXAMINATION: Vital Signs: Blood pressure 100/60, heart rate 78, respirations 13, afebrile. General: He is an elderly man. Mental status as above. No acute distress. Skin: Warm and dry without bruising observed. HEENT: Conjunctivae are pink. Pupils are equal. Corneal arcus is present. Oropharynx is edentulous. Tongue is coated but moist. Neck: Supple. Trachea is midline. Neck veins are not appreciated. Heart: Regular without tachycardia, gallops, murmurs, etc. Lungs: Have equal breath sounds throughout. No crackles or wheezes. No accessory muscle use or retractions. Abdomen: Soft, nontender. Bowel sounds are present. No organomegaly or masses. Extremities: Have trace edema. No clubbing or cyanosis. Distal pulses are difficult to palpate in the feet. Neurologic: Mental status as above but otherwise nonfocal. He moves all extremities spontaneously. His facial muscles are symmetrical. Tongue is midline. IMPRESSIONS: 1. Acute kidney injury overlying chronic kidney disease: Likely secondary to his hypotension. We will check urine electrolytes, eosinophils, protein, and renal ultrasound. I agree with volume resuscitation and we will follow his response. 2. Electrolytes: Moderate hyperkalemia that was not present on admission. We will observe closely and treat if required. 3. Metabolic acidosis. He has both gap and non-gap components to his acidosis and this is likely related to his renal dysfunction. Lactate was 1.2 on his blood gas. 4. Anemia: He has been transfused. cc: MD Dennis Henriquez MD
[2016-10-25 14:12] LABS: BASO% 0.8 % (0.0-0.8); EOS# 0.12 X1000 (0.0-0.7); EOS% 1.4 % (0.0-10.0); HEMATOCRIT 39.4 % (42.0-52.0); HEMOGLOBIN 13.5 g/dL (14.0-18.0); IMM GRAN# 0.05 X1000 (0.0-0.04); IMM GRAN% 0.6 % (0.0-0.5); LYMPH# 0.63 X1000 (1.2-3.4); LYMPH% 7.2 % (20.5-51.1); MANUAL DIFF NEEDED? YES; MCH 31.9 PG (27-31); MCHC 34.3 g/dL (33-37); MCV 93.1 FL (81-99); MONO# 1.16 X1000 (0.11-0.59); MONO% 13.2 % (1.7-9.3); MPV 11.3 FL (7.4-10.4); NEUT% 76.8 % (42.2-75.2); PLT 131 X1000 (130-400); RBC 4.23 XMIL (4.7-6.1)
[2016-10-25 14:38] LABS: BANDS 28 % (0-1); LYMPHS 20 % (21-51); MONO 8 % (1-9)
[2016-10-25] MEDS: D5 1/2 NS 1,000 ML IV SCH (15:09)
--- NOTE | 2016-10-25 16:02 | CONSULTATION ---
DATE OF CONSULTATION: 10/25/2016 PRIMARY CARE DOCTOR: Tylor Chiu MD REQUESTING PHYSICIAN: David Genao MD PRIMARY GASTROENTEROLOGY: Karsten Mcallister MD REASON FOR CONSULTATION: Maroon stools. Anemia. Hypertension. HISTORY OF PRESENT ILLNESS: Mr. Martinez is a 68-year-old male who was admitted last night for weakness, hypotension, decreased responsiveness. He was found to be anemic. His hematocrit was noted to be 27. He was reported to have maroon stools. He has a prior history of chronic smoking and alcohol abuse. He also has a history of congestive heart failure with EF of 30%. He was also noted to be in renal failure and metabolic acidosis. He was given IV fluid resuscitation, and we ordered 2 units of blood transfusion last night and he was put on a Protonix drip. The initial plan was to pursue EGD emergently, but he was on low-dose pressors, dopamine and was undergoing evaluation by the Renal Team. On review of his records, I discovered that he had been seen in the past with Dr. Mcallister. Dr. Mcallister did a colonoscopy on him in 2013 and found colon polyps. Since being in the hospital, he denies any nausea, vomiting, vomiting blood or any more bowel movements today. PAST MEDICAL HISTORY: 1. Hypertension. 2. Congestive heart failure, with ejection fraction of 30%. 3. Chronic renal failure. 4. Type 2 diabetes. 5. Hypertension. 6. Hyperlipidemia. 7. Proximal atrial fibrillation. 8. Prostrate cancer. 9. History of colon cancer. 10. History of colon polyps. PAST SURGICAL HISTORY: 1. Right hemicolectomy. 2. Penile implant. 3. Radical prostatectomy. ALLERGIES: Penicillin. SOCIAL HISTORY: He has a [id number] history of smoking. He drinks socially, but in the past he had a history of alcohol abuse. He denies any history of illicit drug abuse. FAMILY HISTORY: Noncontributory. REVIEW OF SYSTEMS: Denies any fevers, rigors, chills, chest pain, or shortness of breath at rest, although he does appear to have barrel-shaped chest and chronic obstructive pulmonary disease. He denies any vomiting blood or any bright red blood in the stools. Although per the report, he had maroon stools at home. He does have history of arthritis. He had decreased response on admission, but he is better after hydration today. He was able to answer simple questions. MEDICATIONS AT HOME: 1. Spironolactone 25 mg daily. 2. Isosorbide dinitrate 10 mg daily. 3. Hydralazine 10 mg p.o. daily. 4. Coreg 6.25 mg p.o. b.i.d. 5. Cordarone 2 mg p.o. daily. 6. Naproxen 5 mg p.o. b.i.d. which was started 4 days ago. 7. Hydrocodone/acetaminophen 1 tab with every 4-6 hours. 8. Aspirin 81 every day. 9. Lisinopril 5 mg every day. MEDICATIONS IN HOSPITAL: 1. Tylenol. 2. Dopamine. 3. Sliding-scale regular insulin. 4. Levaquin. 5. IV fluids 70 mL/hour. 6. Zofran. 7. 1 dose of vitamin K. 8. 2 units blood transfusion. 9. Protonix drip at 10 mL/hour. PHYSICAL EXAMINATION: Vital signs: Temperature 97.4, pulse of 70, respiratory rate 20, blood pressure of 95/53, saturating 98% on 3 nasal cannula. Body weight of 139 pounds 1.7 ounces, BMI 23 kg/m2. General Appearance: Thinly built, male lying in bed, in no acute distress. HEENT: Pale conjunctivae, no icterus. Pupils equal, react to light. Neck: Supple. Chest: air movement. Barrel-shaped chest. Cardiovascular: Regular rate and rhythm. No murmurs. Abdomen: Soft, nontender, nondistended. Bowel sounds heard. No guarding or rebound. Extremities: No cyanosis, clubbing. Neurologic: He was awake, answers questions. LABORATORY: Hemoglobin and hematocrit is 12.2, 35.4, white count 9.5, platelet count of 151,000, MCV of 92.7, INR 1.51, PT of 19, PTT of 34.9. Sodium 140, potassium 5.9, chloride 117, bicarb 13, anion gap of 18, BUN of 63, creatinine 5.2, glucose of 99, calcium is 8.2, total bilirubin is 0.73, AST 54, ALT 10, alkaline phosphatase is 63, total protein 6.2, albumin of 2.1. Urinalysis showing moderate blood, large leukocytes and positive RBC and positive protein. On admission, his hemoglobin and hematocrit was 27.5 and on previous discharge 10/20, his hemoglobin and hematocrit is 37.3, so he had dropped about 3 pints in the last 4-5 days. IMPRESSION AND PLAN: 1. Maroon stools. Questionable upper gastrointestinal bleeding requiring 2 units blood transfusion. 2. Anemia with recent drop from last admission and required 2 units blood transfusion. 3. Worsening renal insufficiency. 4. Diabetes. 5. Congestive heart failure of 30%. 6. Arthritis, on Naprosyn and aspirin. 7. Chronic obstructive pulmonary disease. 8. Chronic smoker. 9. History of colon cancer. 10. Colon polyps. 11. Mildly elevated liver enzymes. 12. Hypoalbuminemia. 13. Chest x-ray showing left upper lobe atelectasis. RECOMMENDATIONS: 1. We will keep the patient on Protonix drip. We will keep a keep close eye on hemoglobin and hematocrit and type and cross, transfuse to keep hematocrit above 27%. 2. We will hold patient's nonsteroidal antiinflammatory drugs for now. 3. The patient is on low-dose dopamine for hypotension. He has been fluid- resuscitated and received 2 units of blood transfusion. 4. Because of coagulopathy, INR more than 1.5. I have given him a dose of vitamin K. 5. Initial plan was to perform an EGD, but after talking to Anesthesia, we will hold off on performing any kind of endoscopic intervention as the patient is not actively bleeding and he is requiring pressor support. The patient also has a metabolic acidosis and worsening insufficiency being followed by Dr. Lopez. 6. Since the patient has seen Dr. Mcallister in the past, I have consulted Dr. Mcallister to continue the further plan of care. I also discussed plan of care with the patient and the nurse and all questions answered. cc: MD Dennis Marrero MD Khurshid Yousuf, MD Reginald D. Gladish, MD MTDD
[2016-10-25 17:55] LABS: BASO% 0.8 % (0.0-0.8); EOS# 0.02 X1000 (0.0-0.7); EOS% 0.2 % (0.0-10.0); HEMOGLOBIN 13.7 g/dL (14.0-18.0); IMM GRAN# 0.07 X1000 (0.0-0.04); IMM GRAN% 0.8 % (0.0-0.5); LYMPH# 0.57 X1000 (1.2-3.4); LYMPH% 6.6 % (20.5-51.1); MANUAL DIFF NEEDED? NO; MCH 31.6 PG (27-31); MCHC 34.3 g/dL (33-37); MCV 92.4 FL (81-99); MONO# 1.02 X1000 (0.11-0.59); MONO% 11.9 % (1.7-9.3); MPV 11.2 FL (7.4-10.4); NEUT% 79.7 % (42.2-75.2); PLT 147 X1000 (130-400); RBC 4.33 XMIL (4.7-6.1)
[2016-10-25 21:42] LABS: EOS# 0.02 X1000 (0.0-0.7); EOS% 0.2 % (0.0-10.0); HEMATOCRIT 39.3 % (42.0-52.0); HEMOGLOBIN 13.1 g/dL (14.0-18.0); IMM GRAN# 0.08 X1000 (0.0-0.04); IMM GRAN% 0.8 % (0.0-0.5); LYMPH# 0.59 X1000 (1.2-3.4); LYMPH% 5.7 % (20.5-51.1); MANUAL DIFF NEEDED? NO; MCH 31.3 PG (27-31); MCHC 33.3 g/dL (33-37); MONO% 11.6 % (1.7-9.3); MPV 11.2 FL (7.4-10.4); NEUT% 80.7 % (42.2-75.2); PLT 144 X1000 (130-400); RBC 4.18 XMIL (4.7-6.1)
[2016-10-25] MEDS: DOPAMINE 800 MG/D5W 800 MG/500 ML IV.SOLN IV SCH (22:04)
--- NOTE | 2016-10-25 22:57 | PROGRESS NOTE ---
DATE: 10/25/2016 SUBJECT: Interval history was reviewed. Level 3 documentation. 76-year-old male was admitted on 10/24 by hospitalist. I did speak to the son before in ICU. Apparently, patient was living with the with diarrhea, heme-positive stools and altered mental status, hypotension. The patient was seen by Dr. Mcallister. REVIEW OF SYSTEMS: General: Poor historian. No headache, no dizziness. Cardiopulmonary: No chest pain, shortness of breath. GI: No abdominal pain. Diarrhea with bleeding. Neuro: No obvious focal symptoms. PAST MEDICAL HISTORY: Congestive heart failure EF 30%, chronic kidney disease stage 2, diabetes, hypertension, PAF, history of prostate cancer, colon cancer, chronic tobacco abuse and alcohol abuse. PAST SURGICAL HISTORY: Right hemicolectomy, penile implant, radical prostatectomy. MEDICINES: Are reviewed. EXAMINATION: General: In the ICU patient is in not in respiratory distress. Vital signs: Afebrile, pulse is 70, blood pressure is 90/50, 2 L of nasal cannula 100%. HEENT: Within normal limits. Neck: Supple. Chest: Clear. Heart: Sounds are regular. Belly: Soft, nontender. No signs of peritonitis. Extremities: No peripheral edema, cyanosis. Neuro: No obvious neurological deficits. INVESTIGATIONS: CBC. White cell count 8.5, hematocrit 40, platelet count is 147,000. SMA 7. Sodium 148, potassium 5.4, chloride 117, BUN 63, creatinine 5.2. Urinalysis is positive for infection. Chest x-ray, right upper lobe atelectasis. Abdominal ultrasound no evidence of acute intraabdominal disease, distended gallbladder. ASSESSMENT AND PLAN: 1. Altered mental status due to metabolic encephalopathy. 2. Diarrhea with heme-positive stools, right hemicolectomy waiting for EGD and colonoscopy once his hemodynamics are stable. 3. Hypotension. Gentle hydration, D5 half-normal saline along with dopamine. 4. Chronic kidney disease with acute kidney failure due to hypotension. Continue follow up on renal function tests. 5. Gastrointestinal prophylaxis with IV Protonix. 6. Chronic ischemic cardiomyopathy, ejection fraction 30%. Very gentle hydration. Discussed with Dr. Lopez and will continue to monitor his renal function tests. LEVEL OF DOCUMENTATION: 35 minutes. cc: Dennis Chiu MD [facility]
[2016-10-26] MEDS: D5 1/2 NS 1,000 ML IV SCH ×2 (03:33→16:39)
[2016-10-26] MEDS: PROTONIX 80 MG in NS 80 ML IV SCH ×2 (03:46→14:22)
[2016-10-26 04:50] LABS: HEMATOCRIT 36.9 % (42.0-52.0); HEMOGLOBIN 12.5 g/dL (14.0-18.0); MCH 31.3 PG (27-31); MCHC 33.9 g/dL (33-37); MCV 92.5 FL (81-99); RBC 3.99 XMIL (4.7-6.1)
[2016-10-26] MEDS: ZOFRAN IV PRN (05:01)
[2016-10-26 05:21] LABS: CALCIUM 8.5 mg/dL (8.8-10.2); POTASSIUM 5.6 mmol/L (3.5-5.1)
[2016-10-26] MEDS: HUMULIN R SUBQ SCH ×4 (07:21→23:03)
--- NOTE | 2016-10-26 14:59 | PROGRESS NOTE ---
DATE: 10/26/2016 TIME SEEN: 07:45. SUBJECTIVE: Mr. Martinez is resting quietly in bed. He is sitting up and eating some pudding. He denies chest pain or increased work of breathing. OBJECTIVE: His most recent vital signs: Temperature 97.8 degrees, blood pressure 102/56, heart rate 63, respirations 10. He is on 3 L nasal cannula, last recorded saturation 100%. He has had 1787 in, 465 out per Maldonado catheter. Sodium 146, potassium 5.6, chloride 114, CO2 14, BUN 73, creatinine 5.3, glucose 106, anion gap 18, calcium 8.5, phosphorus 6.4, albumin 2. White count 9.43, hemoglobin 12.5, hematocrit 36.9, with a platelet count of 144,000. PHYSICAL EXAMINATION: General: This is a 76-year-old male. He is currently resting in bed. He is in no acute distress. Skin: Warm and dry. HEENT: Normocephalic, atraumatic. Conjunctivae pink. He has SAV. Mucous membranes are moist. Neck : Supple. Trachea midline. No JVD. Cardiovascular: Regular rate and rhythm. He is without murmur or gallop. Lungs: Clear to auscultation anteriorly. Equal excursion on O2. Abdomen: Soft, nontender. Positive bowel sounds. Genitourinary: Adequate urine out at this time to Maldonado catheter. Extremities: Have trace edema. No clubbing or cyanosis. Neurological: He is alert to person and to place. ASSESSMENT AND PLAN: 1. Acute kidney injury overlying chronic kidney disease stage 3. Patient has negative urine eosinophils. Patient has a FENa score of 3.01%. Patient had an abdominal ultrasound yesterday a.m. indicating the right kidney measuring 9.7, left is 9.5, slightly atrophic, no mass or hydronephrosis. This has stabilized and no further improvement in the last 24 hours. He has had adequate urine output. No indications for intervention at this time. We will continue to monitor and watch. Patient continues on dopamine and D5 half- normal. 2. Electrolytes. Patient has mild hyperkalemia. No indications for intervention. We will watch and observe closely. 3. Acidosis. Patient does remain acidotic, this is just slightly better than yesterday. Anion gap remains stable. 4. Anemia. This is in target after transfusion. I would like to thank you for allowing us to follow with this patient. Seen, data reviewed, discussed with Caryl Hong on 10/26/16. I agree with the above assessment and plan of care. rg Dictated by JENNIFER Matias for Ventura Lopez MD cc: JENNIFER Matias MD Jagan Reddy, MD [facility]
--- NOTE | 2016-10-26 15:35 | PROGRESS NOTE ---
DATE: 10/26/2016 SUBJECTIVE: The patient denies complaints. OBJECTIVE: General: Patient is more awake today. He is oriented to person and place. Vital Signs: Temperature 96.9 degrees, pulse 61, respirations 12, blood pressure 93/ 54. General: Generally patient is resting, but arouses easily and is oriented to person and place. No acute distress. Cardiovascular: Regular rate and rhythm. Respiratory: Lung sounds clear. Abdomen: Soft, nontender. Positive bowel sounds. DIAGNOSTIC RESULTS/LABORATORY: Hematology: White count 9.43, hemoglobin 12.5, hematocrit 36.9, MCV 92.5, platelet 144. Chemistry: Sodium 146, potassium 5.6, chloride 114, CO2 14, BUN 73, creatinine 5.3, glucose 106. ASSESSMENT/PLAN: 1. Altered mental status. Improved. 2. Anemia. Stable. He has received packed red blood cells. No evidence of active bleeding. He did have Hemoccult-positive stool. 3. Hypotension requiring dopamine. 4. Chronic kidney disease. 5. History of chronic ischemic cardiomyopathy. Will continue to follow for active bleeding, monitor hemoglobin and hematocrit, and transfuse packed red blood cells as needed. Once he is stable, we will decide about proceeding with endoscopies. I have discussed this case with Dr. Mcallister. Dictated by JENNIFER Luciano for Karsten Mcallister MD cc: JENNIFER Arita MD Jagan Reddy, MD [facility]TD[facility]
--- NOTE | 2016-10-26 18:37 | PROGRESS NOTE ---
DATE: 10/26/2016 SUBJECTIVE: The patient is more bright and not eating very well last night. Continue on IV fluids and IV dopamine. He has a Maldonado catheter. He is still smoking and drinking. REVIEW OF SYSTEMS: None reported. PHYSICAL EXAMINATION: Afebrile. Pulse is 69, blood pressure is 90/54, 3 L nasal cannula 98%. I's and O's are positive [id number] Exam: Atraumatic, normocephalic. Pupils equal, reactive to light. TMs are normal. Nose and throat within normal limits. Neck: Supple. No lymphadenopathy. No goiter. Chest: Bilateral air entry. No rales, no wheezing. Heart: Sounds are regular. Abdomen: Belly is soft, nontender. Good bowel sounds. Maldonado catheter was placed. No peripheral edema, cyanosis. No obvious neurological deficits. INVESTIGATIONS: CBC, white cell count 9.4, hematocrit 36, platelets 144,000. SMA 7: Sodium 146, potassium 5.6, chloride 111, BUN 73, creatinine 5.3. Calcium 8.5. ASSESSMENT AND PLAN: 1. Diarrhea, hematochezia stable. 2. Hypotension. Continue IV fluids and IV dopamine. 3. Chronic congestive heart failure. Stable. Possible UTI on urine dipstick on Levaquin. 4. Gastrointestinal prophylaxis with IV Protonix. PLAN OF CARE: Continue to monitor CBC, SMA 7 and slowly wean off the dopamine as blood pressure comes up above 100 and advance diet to full liquid diet. LEVEL OF DOCUMENTATION: 25 minutes. cc: Dennis Chiu MD
[2016-10-26] MEDS: LEVAQUIN 500 MG/D5W 500 MG/100 ML IVPB IV SCH (20:07)
[2016-10-26] MEDS: DOPAMINE 800 MG/D5W 800 MG/500 ML IV.SOLN IV SCH (20:07)
[2016-10-27] MEDS: PROTONIX 80 MG in NS 80 ML IV SCH ×3 (01:08→20:37)
[2016-10-27 06:19] LABS: HEMATOCRIT 39.5 % (42.0-52.0); HEMOGLOBIN 13.6 g/dL (14.0-18.0); MCH 31.4 PG (27-31); MCHC 34.4 g/dL (33-37); MCV 91.2 FL (81-99); MPV 11.5 FL (7.4-10.4); RBC 4.33 XMIL (4.7-6.1)
[2016-10-27] MEDS: D5 1/2 NS 1,000 ML IV SCH ×2 (06:20→20:24)
[2016-10-27] MEDS: HUMULIN R SUBQ SCH ×4 (06:26→20:37)
[2016-10-27 06:31] LABS: ALBUMIN 1.8 g/dL (3.5-5.0); CALCIUM 8.7 mg/dL (8.8-10.2); POTASSIUM 5.3 mmol/L (3.5-5.1)
--- NOTE | 2016-10-27 08:40 | PROGRESS NOTE ---
DATE: 10/27/2016 TIME SEEN: 07. SUBJECTIVE: Mr. Martinez is resting quietly in bed. He is sipping on a Coke product. He denies chest pain or increased work of breathing. He denies nausea or vomiting. OBJECTIVE: His most recent vital signs his last temperature 97.6, blood pressure 101/59, heart rate 67. Respirations 16. He is on 2 L nasal cannula. Last recorded saturation is 97%. He has had 2888 in. He has had 1305 out per Maldonado catheter. He is positive 6.5 L in the last 72 hours. LABS: Sodium 145, potassium 5.3, chloride 113, CO2 of 13, BUN 73, creatinine 4.7, glucose 94. Anion gap 19. Calcium 8.7, phosphorus 5.4, albumin 1.8. White count 8.13, hemoglobin 13.6, hematocrit 39.5, with a platelet count of 132. PHYSICAL EXAMINATION: General: This is a 76-year-old, male. He is resting quietly in bed. He is in no acute distress. Skin: Warm and dry. HEENT: Normocephalic, atraumatic. Conjunctiva is pale. He has SAV. Mucous membranes moist. Neck: Supple. Trachea midline. No JVD. Cardiovascular: Regular rate and rhythm. He is without murmur or gallop. Lungs: Clear to auscultation anteriorly. Equal excursion on O2. Abdomen: Soft, nontender. Positive bowel sounds. Genitourinary: Adequate urine out per Maldonado catheter. Not inspected. Extremities: Have trace edema. No clubbing or cyanosis. Neurological: Alert and oriented to person, place. ASSESSMENT AND PLAN: 1. Acute kidney injury overlying chronic kidney disease. Patient's creatinine has slowly improved today. It is down to 4.7 from 5.3. BUN remains stable. No indications for intervention. Adequate urine out. We will continue to watch and monitor. 2. Electrolytes with mild hyperkalemia. No indications for intervention. 3. Acidosis. Patient remains acidotic, we have added sodium bicarbonate 650 mg b.i.d. now that he is able to take p.o. We will watch and monitor. 4. Anemia. This is at target base. 5. Gastrointestinal bleed. This is followed by gastroenterology and primary care team. I would to thank you for allowing us to follow with this patient. Seen, data reviewed, discussed with Caryl Hong on 10/27/16. I agree with the above assessment and plan of care. rg Dictated by JENNIFER Matias for Ventura Lopez MD cc: JENNIFER Matias MD Jagan Reddy, MD [facility]
--- NOTE | 2016-10-27 08:53 | PROGRESS NOTE ---
DATE: 10/27/2016 SUBJECTIVE: For the last 24 hours in the ICU, patient is not eating very well. He is awake. Confusion is getting better. He is still on 8 mcg of dopamine drip, unable to wean off due to low blood pressure. He is making urine. He denies of any complaints. REVIEW OF SYSTEMS: No chest pain, shortness of breath. PHYSICAL EXAMINATION: Vital Signs: Afebrile. Blood pressure is 90/50, 2 L nasal cannula. Weight 149 pounds. Is and Os: Positive 1500 mL. HEENT: Examination within normal limits. Chest: Clear. Heart: Heart sounds are regular. Abdomen: Belly is soft, nontender. Good bowel sounds. No masses palpable. He has right inguinal hernia present. Genitalia: Maldonado catheter was seen. Neurologic: No obvious neurological deficits. INVESTIGATIONS: White cell count 8.1, hematocrit 39, platelets 132,000. SMA 7: Sodium 145, potassium 5.3, BUN 73, creatinine 4.7, calcium 8.7. Albumin is 1.8. ASSESSMENT AND PLAN: 1. Acute kidney failure with chronic renal insufficiency due to hypotension. Continue on D5 half- normal saline at 75 an hour with intravenous dopamine, slowly wean off to keep systolic blood pressure above 100. 2. Hematochezia and diarrhea, stable. No signs of active bleeding noted. We will hold on further gastrointestinal workup until his hemodynamics are stable. 3. Right inguinal hernia, stable. 4. Urinary tract infection, on Levaquin. 5. Chronic congestive heart failure, stable. We will hold his home medication until his hemodynamics and renal function tests improve. 6. Level of documentation, 25 minutes. cc: Dennis Chiu MD
[2016-10-27] MEDS: SODIUM BICARBONATE PO SCH ×3 (09:41→20:38)
--- NOTE | 2016-10-27 13:20 | PROGRESS NOTE ---
DATE: 10/27/2016 SUBJECTIVE: Patient states he is feeling better. He was asking about regular food instead of full liquids. He is alert. He is still requiring dopamine for his blood pressure. PHYSICAL EXAM: Vital Signs: Temperature 96.9 degrees, pulse 73, respirations 16, blood pressure 90/56. General: Patient is awake, alert, no acute distress. HEENT: Normocephalic, atraumatic. Pupils equal, round, reactive to light. Cardiovascular: Regular rate and rhythm. Respiratory: Lung sounds essentially clear bilaterally. Abdomen: Soft, nontender. Positive bowel sounds. DIAGNOSTIC RESULTS: Laboratory, hematology: White count 8.13, hemoglobin 13.6, hematocrit 39.5, MCV 91.2, platelets 132,000. Chemistry: Sodium 145, potassium 5.3, chloride 113, CO2 13, BUN 73, creatinine 4.7. ASSESSMENT AND PLAN: 1. Acute kidney failure with chronic renal insufficiency. 2. Hematochezia with history of recent diarrhea. No noted active bleeding now. He has not had a bowel movement since admission. 3. Urinary tract infection. Treating with antibiotics. 4. Congestive heart failure. His hemoglobin and hematocrit are stable. He has had no further active bleeding. We will continue to monitor and further plans will be made as needed as far his endoscopic evaluation is required. We will advance diet to a GI soft diet and see how he does. We will continue to follow and be available as needed. I have discussed this case with Dr. Mcallister. Dictated by JENNIFER Luciano for Karsten Mcallister MD cc: JENNIFER Arita MD Jagan Reddy, MD
[2016-10-27] MEDS: ATIVAN IV PRN (14:51)
[2016-10-27] MEDS: ZOFRAN IV PRN (20:24)
[2016-10-28] MEDS: ATIVAN IV PRN (00:40)
[2016-10-28] MEDS: ZOFRAN IV PRN (00:40)
[2016-10-28 05:54] LABS: HEMATOCRIT 39.5 % (42.0-52.0); HEMOGLOBIN 13.6 g/dL (14.0-18.0); MCH 31.4 PG (27-31); MCHC 34.4 g/dL (33-37); MCV 91.2 FL (81-99); MPV 11.7 FL (7.4-10.4); RBC 4.33 XMIL (4.7-6.1)
[2016-10-28] MEDS: HUMULIN R SUBQ SCH ×4 (06:11→21:26)
[2016-10-28 06:20] LABS: ALBUMIN 1.9 g/dL (3.5-5.0); CALCIUM 9.2 mg/dL (8.8-10.2)
[2016-10-28] MEDS ORDERED: ATIVAN IV PRN (08:08)
[2016-10-28] MEDS: SODIUM BICARBONATE PO SCH ×2 (09:02→21:26)
[2016-10-28] MEDS: D5 1/2 NS 1,000 ML IV SCH ×2 (09:02→22:03)
--- NOTE | 2016-10-28 12:58 | PROGRESS NOTE ---
DATE: 10/28/2016 TIME SEEN: 0750. SUBJECTIVE: Mr. Martinez is resting quietly in bed. He denies chest pain or increased work of breathing. States no nausea and vomiting. OBJECTIVE: His most recent vital signs, temperature 97.6, blood pressure 116/77 , heart rate 72, respirations 20. He is on 2 L nasal cannula. Last recorded saturation is 96%. He has had 2297 in, 715 out per Maldonado. LABS: Sodium 142, potassium 5, chloride 111, CO2 of 13, BUN 67, creatinine 4.5 , glucose 111. Anion gap 18. Calcium 9.2, phosphorus 4.2, albumin 1.9. White count 12.56, hemoglobin 13.6, hematocrit 39.5, with a platelet count of 124. PHYSICAL EXAMINATION: General: This is a 76-year-old, male. He is currently resting in bed. He is in no acute distress. Skin: Warm and dry. HEENT: Normocephalic, atraumatic. Conjunctivae pale. He has SAV. Mucous membranes moist. Neck: Supple. Trachea midline. No JVD. Cardiovascular: Regular rate and rhythm. He is without murmur or gallop. Lungs: Clear to auscultation anteriorly. Equal excursion. He remains on O2. Abdomen: Round, soft, nontender. Positive bowel sounds. Midepigastric tenderness has improved. Genitourinary: Maldonado catheter is in place. Not inspected. Extremities: Trace pretibial edema. No clubbing or cyanosis. Neurological: Alert and oriented x3. ASSESSMENT AND PLAN: 1. Acute kidney injury overlying chronic kidney disease. Patient's creatinine continues with slow improvement. BUN and creatinine down to 67, with a creatinine of 4.5. Patient is starting to eat well no indications for further intervention. 2. Electrolytes. These are stable. 3. Acid-base balance. Patient remains in metabolic acidosis. He continues on oral sodium bicarbonate. 4. Anemia. This is at target. 5. Gastrointestinal bleed. Followed by Gastroenterology and primary care team. I would to thank you for allowing us to follow with this patient. Seen, data reviewed, discussed with Caryl Hong on 10/28/16. I agree with the above assessment and plan of care. rg Dictated by JENNIFER Matias for Ventura Lopez MD cc: JENNIFER Matias MD Jagan Reddy, MD [facility]
--- NOTE | 2016-10-28 21:43 | PROGRESS NOTE ---
DATE: 10/28/2016 SUBJECTIVE: The last 24 hours, patient has been withdrawing from smoking and alcohol. He is agitated. Not eating very well. He was given some Ativan last night. He was dozing off. The patient did not have any GI symptoms like diarrhea or hematochezia. No family was there. REVIEW OF SYSTEMS: Not able to obtain. PHYSICAL EXAMINATION: Vital signs: Afebrile. Blood pressure is stable off the dopamine. Input and output: Even. HEENT: Within normal limits. Chest: Clear. Heart: Sounds are erratic. Abdomen: Belly is soft, nontender. Good bowel sounds. Right inguinal hernia present. Maldonado catheter was seen. 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 Rate is well controlled. CBC: White cell count 12.5, hematocrit 39, platelets 124,000. SMA7: Sodium 142, potassium 5, chloride 111, BUN 67, creatinine 4.5, glucose 111, albumin 1.9. ASSESSMENT AND PLAN: 1. Acute kidney injury with chronic renal failure due to hypotension. Continue on IV fluids, D5 half-normal saline 75 mL an hour. 2. Hypotension. Weaned off dopamine. 3. Withdrawal symptoms from smoking and alcohol. Ativan decreased 0.5 q.6 as needed. 4. Possible urinary tract infection, on Levaquin every 48 hours. 5. Atrial fibrillation. Rate is well controlled. Once his mental status improves, we will restart his home medications. 6. Right inguinal hernia. Stable. 7. History of gastrointestinal bleeding. We will follow up on occult blood stool. Stable hematocrit. Continue to monitor daily CBC and renal profile. LEVEL OF DOCUMENTATION: 25 minutes. cc: Dennis Chiu MD
[2016-10-28] MEDS: LEVAQUIN 500 MG/D5W 500 MG/100 ML IVPB IV SCH (22:03)
[2016-10-29] MEDS: HUMULIN R SUBQ SCH ×4 (06:27→20:13)
[2016-10-29 06:45] LABS: HEMATOCRIT 34.2 % (42.0-52.0); HEMOGLOBIN 12.1 g/dL (14.0-18.0); MCH 31.2 PG (27-31); MCHC 35.4 g/dL (33-37); MCV 88.1 FL (81-99); MPV 11.1 FL (7.4-10.4); RBC 3.88 XMIL (4.7-6.1)
[2016-10-29 07:10] LABS: ALBUMIN 1.7 g/dL (3.5-5.0); CALCIUM 8.3 mg/dL (8.8-10.2); POTASSIUM 4.3 mmol/L (3.5-5.1)
[2016-10-29] MEDS: ZOFRAN IV PRN ×2 (07:56→17:49)
[2016-10-29] MEDS: SODIUM BICARBONATE PO SCH ×2 (08:50→22:12)
--- NOTE | 2016-10-29 09:03 | PROGRESS NOTE ---
DATE: 10/29/2016 SUBJECTIVE: He denies new complaints today. Lying flat. No shortness of breath. No chest discomfort. OBJECTIVE: Vital Signs: Blood pressure 112/60, heart rate 73, respiration 18, afebrile. Intake 1.9 L. Output 1.2 L. General Appearance: No acute distress. Skin: Warm and dry. HEENT: Conjunctivae are pink. Neck: Neck veins are approximately 6 cm. Lungs: Have equal breath sounds. No crackles or wheezes. Heart: Regular with an S4. No murmurs. Abdomen: Soft, nontender. Bowel sounds present. Extremities: With trace edema in the arms. None in the lower extremities. No clubbing or cyanosis. LABORATORY DATA: Sodium 141, potassium 4.3, chloride 114, bicarbonate 12. BUN 59, creatinine 3.6. IMPRESSION: 1. Acute kidney injury. Progressive improvement. He has chronic kidney disease with baseline creatinine of approximately 2. No new intervention. 2. Metabolic acidosis. His bicarbonate is about the same. He is receiving 650 mg of bicarbonate p.o. b.i.d. I will increase that to 1300. 3. Hypertension, in target. cc: MD Dennis Henriquez MD
--- NOTE | 2016-10-29 11:08 | PROGRESS NOTE ---
DATE: 10/29/2016 SUBJECTIVE: The patient is slowly withdrawing from smoking and alcohol. Ativan was given. Not eating very well. This morning, has significant bilious vomiting noted. He is not offering any complaints. Dopamine is off. REVIEW OF SYSTEMS: Unable to obtain because of the confusion. PHYSICAL EXAMINATION: Vital Signs: Afebrile. Pulse is 70. Blood pressure is 112/65, 151 pounds. 2 L nasal cannula 90%. I Os are positive 670 mL. HEENT: Within normal limits. Neck: Supple. Chest: Some rhonchi on the right side. Heart: Sounds are irregularly irregular. Distant. Abdomen: Belly is soft, nontender. Not distended. Maldonado catheter was seen. No peripheral edema. Neurologic: No obvious deficits noted. INVESTIGATIONS: CBC, white cell count 10, hematocrit 34, platelets 110,000. SMA 7: Sodium 140, potassium 4.3, chloride 114, BUN 59, creatinine 3.6. Glucose 109. ASSESSMENT AND PLAN: 1. Hypotension is better. Off dopamine. 2. Chronic kidney disease with acute kidney failure improving. Continue on D5 half-normal saline at 80 an hour 3. Abdominal pain, diarrhea, nausea and vomiting, with the hernia on the right side. Flat/upright of the abdomen. 4. Urinary tract infection on Levaquin every other day. 5. Paroxysmal atrial fibrillation. Currently in and out of atrial fibrillation off all his home medications. 6. Impending delirium tremens. Ativan as needed. 7. Watch for signs of aspiration. Zofran as needed. 8. Follow up on the flat/upright of the abdomen with chest. No family is at the bedside. LEVEL OF DOCUMENTATION: 25 minutes. cc: Dennis Chiu MD
[2016-10-29] MEDS: D5 1/2 NS 1,000 ML IV SCH (12:13)
[2016-10-29] MEDS ORDERED: MILK OF MAGNESIA PO ONE (12:49)
--- NOTE | 2016-10-29 14:28 | PROGRESS NOTE ---
DATE: 10/29/2016 SUBJECTIVE: Patient denies any significant complaints. When asked if he was having any abdominal pain he said no. He is drowsy. He has received some Ativan. Nurse reports that he has had some episodes of vomiting. PHYSICAL EXAM: Vital Signs: Temperature 98.0 degrees, pulse 74, respirations 31, blood pressure 114/65. His dopamine has been able to be titrated off. General: Patient is drowsy but arouses and follows commands and is verbal. Respiratory: With some rhonchi. Cardiovascular: Irregular rate. Abdomen: Soft, nontender. Positive bowel sounds. DIAGNOSTIC RESULTS: Laboratory. Hematology. White count 10.80, hemoglobin 12.1, hematocrit 34.2, MCV 88.1, platelets 110,000. Chemistry. Sodium 141, potassium 4.3, chloride 114, CO2 12, BUN 59, creatinine 3.6, glucose 109. ASSESSMENT AND PLAN: 1. Hypotension has improved. He is currently off of dopamine. 2. Abdominal pain, nausea, vomiting. He has continued to have some episodes of vomiting. He is not eating very well. He has not had a bowel movement since admission. Continue supportive care. Will continue to monitor. Now that he is off of dopamine if he continues to have GI symptoms we may need to proceed with an EGD next week. I will give him a dose of milk of magnesia today. Further plans will be made according to results. Dictated by JENNIFER Luciano for Karsten Mcallister MD cc: JENNIFER Arita MD Jagan Reddy, MD [facility]
[2016-10-29] MEDS ORDERED: GLYCERIN ADULT PR ONE (18:30)
[2016-10-29] MEDS ORDERED: DULCOLAX PR ONE (19:30)
[2016-10-30] MEDS ORDERED: CALMOSEPTINE OINTMENT TOP PRN (03:20)
[2016-10-30 04:40] LABS: ALLEN TEST YES; BE -11.1 mmoll (-3.0-3.0); BLOOD TYPE ARTERIAL; DRAW SITE R RADIAL; O2(CT) 29.2 mL/dL (15.0-23.0); PCO2(98.6) 26 mmHg (35-45); PO2(98.6) 108 mmHg (60-100); SAMPLE BLOOD; SAO2 97.7 % (95.0-100.0); THB 21.7 g/dL (11.5-17.4)
[2016-10-30 04:41] LABS: MODALITY CANNULA
[2016-10-30 05:01] LABS: HEMATOCRIT 35.7 % (42.0-52.0); HEMOGLOBIN 12.7 g/dL (14.0-18.0); MCH 31.5 PG (27-31); MCHC 35.6 g/dL (33-37); MCV 88.6 FL (81-99); MPV 11.4 FL (7.4-10.4); RBC 4.03 XMIL (4.7-6.1)
[2016-10-30 05:43] LABS: CALCIUM 8.7 mg/dL (8.8-10.2); POTASSIUM 4.2 mmol/L (3.5-5.1); TOTAL BILIRUBIN 0.47 mg/dL (0.20-1.00); TOTAL PROTEIN 4.9 g/dL (6.3-8.3)
[2016-10-30] MEDS: D5 1/2 NS 1,000 ML IV SCH ×2 (06:57→13:45)
[2016-10-30] MEDS: HUMULIN R SUBQ SCH ×4 (07:10→21:00)
[2016-10-30] MEDS: SODIUM BICARBONATE PO SCH ×2 (08:30→21:00)
--- NOTE | 2016-10-30 08:34 | Diag Imaging Result Doc PS360 ---
EXAM: ABDOMEN FLAT/UPRIGHT INDICATION: pain TECHNIQUE: 2 views COMPARISON: None available. FINDINGS: There is moderate gaseous distention of several loops of small bowel that is nonspecific. Consider ileus versus partial obstruction. There is no evidence of large volume free abdominal gas. There are degenerative changes involving the spine as well as scoliosis. IMPRESSION: Moderate gaseous distention of several loops of small bowel as described. Electronically signed by Fermín Muñoz 10/30/2016 8:31 AM
--- NOTE | 2016-10-30 13:10 | PROGRESS NOTE ---
DATE: 10/30/2016 SUBJECTIVE: Mr. Martinez is a 76-year-old -[place] gentleman who has acute renal failure, metabolic acidosis. He has atrial fibrillation. He had some bowel movements today and the stool came back positive for occult blood as well as clostridium difficile positive. Abdominal x-rays revealed dilated intestinal loops. His lactate level was 0.8. Electrolytes are normal. BUN 54, creatinine 3.2. He is getting IV Levaquin every other day. We will put him on vancomycin by mouth and Flagyl IV, as well as get a GI consult on him. cc: MD Dennis Dean MD
[2016-10-30] MEDS: FLAGYL 250 MG/NS 250 MG/50 ML IVPB IV SCH ×2 (13:30→18:05)
--- NOTE | 2016-10-30 13:30 | PROGRESS NOTE ---
DATE: 10/30/2016 SUBJECTIVE: He is about the same. Not very verbal, but states that he is okay. OBJECTIVE: Vital Signs: Blood pressure 92/48, heart rate 70, respirations 16, afebrile. Generally: He is in no acute distress. Skin: Warm and dry. Conjunctivae are pink. Neck: Neck veins are distended. Heart: Regular with a gallop. Lungs: Have equal breath sounds. Shallow. No crackles. Abdomen: Soft, nontender. Bowel sounds are present. Extremities: No edema, clubbing, or cyanosis. LABORATORY DATA: Sodium 144, potassium 4.2, chloride 114, bicarbonate 14. BUN 54, creatinine 3.2. IMPRESSION: 1. Acute kidney injury. Progressive improvement. Good urine output. 2. Acid-base: Improving serum bicarbonate. Recovery of his renal dysfunction will be important for improvement in his acid-base status. He is also receiving normal saline, which may also propagate his metabolic acidosis. 3. Chronic kidney disease. Baseline creatinine approximately 2. cc: MD Dennis Henriquez MD
[2016-10-30] MEDS: ZOFRAN IV PRN (13:45)
[2016-10-30] MEDS: VANCOCIN PO SCH ×2 (13:46→20:52)
[2016-10-30] MEDS: LEVAQUIN 500 MG/D5W 500 MG/100 ML IVPB IV SCH (20:51)
[2016-10-31] MEDS: FLAGYL 250 MG/NS 250 MG/50 ML IVPB IV SCH ×2 (01:06→08:19)
[2016-10-31] MEDS: VANCOCIN PO SCH ×4 (05:29→21:06)
[2016-10-31] MEDS: D5 1/2 NS 1,000 ML IV SCH ×2 (05:29→21:07)
[2016-10-31 07:06] LABS: BASO% 1.2 % (0.0-0.8); EOS# 0.14 X1000 (0.0-0.7); EOS% 1.2 % (0.0-10.0); HEMATOCRIT 39.1 % (42.0-52.0); HEMOGLOBIN 13.7 g/dL (14.0-18.0); IMM GRAN% 1.7 % (0.0-0.5); LYMPH% 7.5 % (20.5-51.1); MANUAL DIFF NEEDED? NO; MCH 31.2 PG (27-31); MCV 89.1 FL (81-99); MONO# 0.86 X1000 (0.11-0.59); MONO% 7.1 % (1.7-9.3); MPV 11.6 FL (7.4-10.4); NEUT% 81.3 % (42.2-75.2); PLT 106 X1000 (130-400); RBC 4.39 XMIL (4.7-6.1)
[2016-10-31 07:18] LABS: CALCIUM 8.6 mg/dL (8.8-10.2); POTASSIUM 4.2 mmol/L (3.5-5.1)
[2016-10-31] MEDS: HUMULIN R SUBQ SCH ×4 (07:50→21:00)
[2016-10-31] MEDS: ZOFRAN IV PRN ×3 (08:19→23:35)
[2016-10-31] MEDS: SODIUM BICARBONATE PO SCH ×2 (08:19→21:06)
--- NOTE | 2016-10-31 09:45 | PROGRESS NOTE ---
DATE: 10/31/2016 Mr. Martinez is still sick in the stomach. He has been throwing up, some diarrhea, appears to be under somewhat control. His vital signs are stable. He says he is feeling better. Laboratory data reveals that his arterial blood gases are improving. PH is 7.3, pCO2 is 26, bicarb is 16.2. The lactate level is 0.8. Electrolytes are normal. BUN is 48, creatinine is 2.6. He had stool positive for occult blood as well as C. difficile and we have started the appropriate management. We will ask for a GI consult. cc: MD Dennis Dean MD
[2016-11-01] MEDS: VANCOCIN PO SCH ×4 (02:00→20:05)
[2016-11-01 06:25] LABS: HEMATOCRIT 36.9 % (42.0-52.0); HEMOGLOBIN 12.8 g/dL (14.0-18.0); MCH 31.8 PG (27-31); MCHC 34.7 g/dL (33-37); MCV 91.6 FL (81-99); MPV 11.6 FL (7.4-10.4); RBC 4.03 XMIL (4.7-6.1)
[2016-11-01 06:42] LABS: CALCIUM 8.8 mg/dL (8.8-10.2); POTASSIUM 3.8 mmol/L (3.5-5.1)
[2016-11-01] MEDS: ZOFRAN IV PRN (07:02)
[2016-11-01] MEDS: HUMULIN R SUBQ SCH ×4 (07:03→20:05)
--- NOTE | 2016-11-01 08:39 | Diag Imaging Result Doc PS360 ---
EXAM: CHEST-1 VIEW HISTORY: SOB TECHNIQUE: Portable upright AP COMPARISON: 10/25/2016 FINDINGS: The lungs are well expanded. There are mild increased markings in the mid right lung and in the medial right base. Heart is borderline mildly prominent although this is an upright AP exam. No pleural effusions. The vessels are not distended. IMPRESSION: I believe there are small infiltrates in the right lung. Electronically signed by Jaiden Fink 11/01/2016 8:36 AM
--- NOTE | 2016-11-01 08:40 | Diag Imaging Result Doc PS360 ---
EXAM: ABDOMEN FLAT/UPRIGHT HISTORY: pain TECHNIQUE: Portable upright supine COMPARISON: 10/30/2016 FINDINGS: There are multiple air distended loops of small bowel. These were present on the prior exam. No definite improvement. No organomegaly. There are multiple surgical clips in the pelvis. Mild degenerative spine changes. Prominent heterotopic bone about the right hip. IMPRESSION: Small bowel obstruction. Electronically signed by Jaiden Fink 11/01/2016 8:37 AM
[2016-11-01] MEDS: D5 1/2 NS 1,000 ML IV SCH ×2 (09:20→20:05)
[2016-11-01] MEDS: CULTURELLE PO SCH (09:23)
[2016-11-01] MEDS: SODIUM BICARBONATE PO SCH ×2 (09:24→20:04)
--- NOTE | 2016-11-01 09:40 | PROGRESS NOTE ---
DATE: 11/01/2016 SUBJECTIVE: The patient is sitting up in bed. He is wondering if he could be moved out of the unit today. OBJECTIVE: Vital Signs: Temperature 97.73, respiratory rate 18, blood pressure 107/77, intake 2 L, output 1.4 L. General: This is an elderly gentleman, resting in bed. He is awake and alert. No acute distress. HEENT: Normocephalic, atraumatic. Oral mucosa moist. Dentition poor. Neck: Supple. Trachea midline. He has some trace JVD. Cardiovascular: Regular rate and rhythm. He has a gallop noted. Pulmonary: He has equal excursion. There is no increased work of breathing. He is clear bilaterally. He remains on 2 L nasal cannula. Abdomen: Soft with positive bowel sounds. : Not inspected. He has a Maldonado catheter with moderate urine noted. Extremities: No clubbing, cyanosis, or edema. Integumentary: Skin is warm and dry otherwise. LABORATORY DATA: WBC of 13, hemoglobin 12.8. Sodium 145, potassium 3.8, CO2 of 18, creatinine 2.4, calcium 8.8. ASSESSMENT AND PLAN: 1. Acute kidney injury. He has had continued modest improvement with his renal function over the weekend. He has a baseline of around 2, and we are closing in on that. 2. Electrolytes, acid-base balance. These are acceptable. 3. Hypotension, improved. Followed by primary. Seen, data reviewed, discussed with Dash Kitchen on 11/01/16. I agree with the above assessment and plan of care. rg Dictated by JENNIFER Owens for Ventura Lopez MD cc: MD Dennis Henriquez MD [facility]assie
[2016-11-01] MEDS: FLAGYL 250 MG/NS 250 MG/50 ML IVPB IV SCH ×3 (10:00→22:39)
--- NOTE | 2016-11-01 19:18 | PROGRESS NOTE ---
DATE: 11/01/2016 SUBJECTIVE: Level 3 documentation. Interval history was reviewed. Patient is not any DTs. He continues to have nausea, vomiting. He had 2 bowel movements yesterday. Stool cultures are heme- positive and C. Difficile was positive. He had some rhonchi on the right side. Chest x-ray showed infiltrate in the right upper lobe. He was not able to tolerate vancomycin by mouth. He is not eating very well. X-rays reviewed ileus. No significant obstruction present. He also had a significant right inguinal hernia present. REVIEW OF SYSTEMS: HEENT: No headaches and no vision problem. Cardiopulmonary: No chest pain, shortness of breath. GI: Nausea. Ileus. Last BM yesterday. Extremities: No swelling of legs. Neurologic: He has some tremors in the upper extremities. OBJECTIVE: Vital Signs: He is afebrile. Blood pressure is labile, stable. 2 L nasal cannula 91%. Input and output: -300. HEENT: Within normal limits. Neck: Supple. Chest: Rhonchi on the right side. Heart: Sounds are irregular. Abdomen: Belly is soft, nondistended. No signs of peritonitis. Inguinal hernia present on the right side. Extremities: No peripheral edema or cyanosis. Neurologic: No obvious neurological deficits. INVESTIGATIONS: CBC, white cell count 13, hematocrit 36, platelets 110,000. ABG; pH is 7.30, pCO2 26, PO2 108. SMA7: Sodium 148, potassium 3.8, chloride 114, BUN 39, creatinine 2.4. Glucose 88, albumin is 2. Stool occult blood positive. C. Difficile is positive. ASSESSMENT AND PLAN: 1. Hypotension. Improving off vasopressors. Continue IV fluids. 2. Chronic renal failure with acute kidney injury. Improving. Stable hemodynamics. 3. Atrial fibrillation. Stable ventricular response. 4. Clostridium difficile colitis, probably from antibiotics and unable to tolerate vancomycin. Changed to IV Flagyl. 5. Nausea and vomiting. Ileus versus subacute bowel obstruction. Repeat the x-rays today. 6. Impending delirium tremens and Ativan as needed. 7. I will add probiotics and repeat the labs in the morning. No family is around. The patient wants to go home. We will investigate for his nausea and vomiting and ileus. If no better, consider Gastroenterology consult with Dr. Mcallister. LEVEL OF DOCUMENTATION: 35 minutes. cc: Dennis Chiu MD
[2016-11-02] MEDS: FLAGYL 250 MG/NS 250 MG/50 ML IVPB IV SCH ×4 (03:27→20:59)
[2016-11-02] MEDS: VANCOCIN PO SCH ×4 (03:27→20:52)
[2016-11-02 06:15] LABS: BASO% 0.1 % (0.0-0.8); EOS# 0.19 X1000 (0.0-0.7); EOS% 1.3 % (0.0-10.0); HEMATOCRIT 35.5 % (42.0-52.0); HEMOGLOBIN 12.2 g/dL (14.0-18.0); IMM GRAN# 0.24 X1000 (0.0-0.04); IMM GRAN% 1.7 % (0.0-0.5); LYMPH# 0.86 X1000 (1.2-3.4); LYMPH% 6.1 % (20.5-51.1); MANUAL DIFF NEEDED? YES; MCH 30.5 PG (27-31); MCHC 34.4 g/dL (33-37); MCV 88.8 FL (81-99); MONO# 0.89 X1000 (0.11-0.59); MONO% 6.3 % (1.7-9.3); MPV 11.2 FL (7.4-10.4); NEUT% 84.5 % (42.2-75.2); PLT 125 X1000 (130-400)
[2016-11-02 06:29] LABS: CALCIUM 8.4 mg/dL (8.8-10.2); POTASSIUM 3.4 mmol/L (3.5-5.1)
[2016-11-02] MEDS: HUMULIN R SUBQ SCH ×4 (06:42→20:52)
[2016-11-02 07:13] LABS: LYMPHS 5 % (21-51); MONO 7 % (1-9)
[2016-11-02] MEDS ORDERED: LANOXIN IV ONE (07:31)
[2016-11-02] MEDS: CULTURELLE PO SCH (08:57)
[2016-11-02] MEDS: D5 1/2 NS 1,000 ML IV SCH (08:57)
[2016-11-02] MEDS: POTASSIUM CHLORIDE 20 MEQ/SWI 20 MEQ/100 ML IVPB IV SCH ×2 (08:57→11:10)
[2016-11-02] MEDS: SODIUM BICARBONATE PO SCH ×2 (08:57→20:52)
--- NOTE | 2016-11-02 12:36 | PROGRESS NOTE ---
DATE: 11/02/2016 SUBJECTIVE: No new complaints today. He still says he is feeling well. OBJECTIVE: Blood pressure 76/44, heart rate 115, respirations 14, afebrile. Intake 2 L. Output 1.4 L. PHYSICAL EXAMINATION: No acute distress. Skin is warm and dry. Conjunctivae are pink. Neck veins are not appreciated. Heart is irregular with a gallop. Lungs have equal breath sounds. No crackles. Abdomen soft, nontender. Bowel sounds present. Extremities have no edema, clubbing, or cyanosis. LABORATORY DATA: Sodium 144, potassium 3.4, chloride 113, bicarbonate 17, BUN 32, creatinine 2.0. IMPRESSION: 1. Acute kidney injury overlying chronic kidney disease. His creatinine is back to his historical baseline. 2. Electrolytes acceptable. 3. Acid-base: Progressive improvement. No further intervention. cc: MD Dennis Henriquez MD
--- NOTE | 2016-11-02 21:25 | PROGRESS NOTE ---
DATE: 11/02/2016 SUBJECTIVE: The patient is more lucid. The last 24 hours, he had several bowel movements. He has a large right inguinal hernia present. He had hyperactive bowel sounds. He has been tolerating the food very well. Stools are loose. Blood pressure is labile. REVIEW OF SYSTEMS: Lungs: No chest pain, shortness of breath. Heart: Rate is erratic and speeding. No palpitations. GI: Several loose bowel movements. Passing gas. Extremities: No swelling of legs. Neurologic: No tremors noted. OBJECTIVE: Vital signs: Temperature 97, heart rate is 105, blood pressure is 73/52, 2 L nasal cannula 91%. Input and output: Positive 610 mL. HEENT: Within normal limits. Neck: Supple. Chest: Bilateral air entry. Heart: Sounds are erratic and fast. Abdomen: Belly is soft. Good bowel sounds. Right inguinal hernia present. Penile implant. Neurologic: No obvious neurological deficits. LABORATORIES: CBC: White cell count 14, hematocrit 35, platelets 125,000. SMA7: Sodium 144, potassium 3.4, chloride 113, BUN 32, creatinine 2, glucose 109, albumin 2. Microbiology: Stool occult blood positive as well as C. Difficile. ASSESSMENT AND PLAN: 1. Chronic renal failure is improving. Came back to the baseline. 2. Atrial fibrillation. Rapid ventricular response. Digitalis IV. 3. Hypotension. We will closely monitor with IV fluids. If not we will use low dose of dopamine. 4. Clostridium difficile colitis with ileus. Continue on Flagyl and p.o. vancomycin. 5. Right inguinal hernia. Reducible. We will closely monitor small bowel obstruction. 6. Hypokalemia. We will replace the potassium. 7. Impending delirium tremens, stable. 8. Diabetes, on sliding scale with insulin coverage. 9. Plan of care: Out of the bed. Repeat the labs in the morning. If he tolerates the diet very well and hemodynamics stable, he will be transferred from the ICU. In the meantime, continue to monitor in ICU. LEVEL OF DOCUMENTATION: 25 minutes. cc: Dennis Chiu MD
[2016-11-03] MEDS: VANCOCIN PO SCH ×4 (01:49→19:45)
[2016-11-03] MEDS: FLAGYL 250 MG/NS 250 MG/50 ML IVPB IV SCH ×4 (03:56→21:13)
[2016-11-03] MEDS: D5 1/2 NS 1,000 ML IV SCH ×2 (03:59→11:36)
[2016-11-03 05:56] LABS: HEMATOCRIT 33.8 % (42.0-52.0); HEMOGLOBIN 11.7 g/dL (14.0-18.0); MCH 31.7 PG (27-31); MCHC 34.6 g/dL (33-37); MCV 91.6 FL (81-99); MPV 11.6 FL (7.4-10.4); RBC 3.69 XMIL (4.7-6.1)
[2016-11-03] MEDS: HUMULIN R SUBQ SCH ×4 (06:05→20:01)
[2016-11-03 06:37] LABS: POTASSIUM 4.1 mmol/L (3.5-5.1)
[2016-11-03] MEDS: LANOXIN IV SCH (09:55)
[2016-11-03] MEDS: SODIUM BICARBONATE PO SCH ×3 (09:55→17:42)
[2016-11-03] MEDS: CULTURELLE PO SCH (09:55)
--- NOTE | 2016-11-03 13:24 | PROGRESS NOTE ---
DATE: 11/03/2016 SUBJECTIVE: He is sitting up in a chair. Asking to go to the bathroom. Remains very weak. OBJECTIVE: Vital Signs: Blood pressure 78/50, heart rate 88, respirations 17, afebrile. Intake 2.4 L. Output 700 mL. PHYSICAL EXAMINATION: No acute distress.Skin: Warm and dry. HEENT: Conjunctivae are pink. Neck: Neck veins are not appreciated. Heart: Regular without gallops or murmurs. Lungs: Have equal breath sounds. No crackles or wheezes. Extremities: Have no edema in the legs. 1+ in the arms. No clubbing or cyanosis. IMPRESSION: 1. Acute kidney injury. His creatinine has returned to his historical baseline. 2. Metabolic acidosis. Will increase his oral bicarbonate dose to 1350 t.i.d. 3. We will stop his IV fluids. cc: MD Dennis Henriquez MD
--- NOTE | 2016-11-03 14:20 | PROGRESS NOTE ---
DATE: 11/03/2016 SUBJECTIVE: Patient denies any significant complaints. He still does not have a very good appetite, he is eating small amounts. No reported bleeding or vomiting per nurse. OBJECTIVE: Vital Signs: Temperature 97.9 degrees, pulse 88, respiration 17, blood pressure 92/54. LABORATORY: Hematology: White count 13.52, hemoglobin 11.7, hematocrit 33.8. Chemistry: Sodium 141, potassium 4.1, chloride 114, CO2 13, BUN 28, creatinine 1.9. ASSESSMENT: 1. Acute kidney injury. Improved. 2. Nausea and vomiting. Improved. 3. Clostridium difficile with ileus. Continue antibiotics. 4. Right inguinal hernia. 5. Altered mental status has improved. 6. Atrial fibrillation. 7. Hypotension. He is off of dopamine at present time. Continue to monitor. Gastroenterology will be available as needed. Dictated by JENNIFER Luciano for Karsten Mcallister MD cc: JENNIFER rAita MD Jagan Reddy, MD [facility]
--- NOTE | 2016-11-03 20:18 | PROGRESS NOTE ---
DATE: 11/03/2016 SUBJECTIVE: Patient is slowly improving. Heart rate is controlled. Still atrial fibrillation. Blood pressure is still on the low side. Tolerating the diet very well. No diarrhea. REVIEW OF SYSTEMS: None reported. OBJECTIVE: Vital signs: Afebrile, pulse is 88. Blood pressure is 90/54. Input and output: Positive 875. HEENT: Within normal limits. Chest: Clear. Heart: Sounds are regular. Abdomen: Belly is soft, nontender. Right inguinal hernia present. Penile implant seen. Neurologic: No obvious neurological deficits. INVESTIGATIONS: CBC, white cell count 13, hematocrit 33, platelets 109,000. SMA7: Sodium 140, potassium 4.1, chloride 114, BUN 28, creatinine 1.9, glucose 111. ASSESSMENT: 1. Aspiration. Right-sided pneumonia, stable. 2. Chronic kidney disease. Back to the baseline on IV fluids. 3. Atrial fibrillation on digitalis. 4. Clostridium difficile colitis. Continue on p.o. vancomycin and IV Flagyl. 5. Impending delirium tremens, stable. PLAN OF CARE: 1. Out of the bed with the physical therapy and see how he tolerates. 2. Right inguinal hernia. Stable. 3. Continue present medical therapy. Discussed with the patient in my office about his plan of care. LEVEL OF DOCUMENTATION: 25 minutes. cc: Dennis Chiu MD
[2016-11-04] MEDS: VANCOCIN PO SCH ×4 (02:02→19:37)
[2016-11-04] MEDS: FLAGYL 250 MG/NS 250 MG/50 ML IVPB IV SCH ×4 (03:41→21:08)
[2016-11-04] MEDS: HUMULIN R SUBQ SCH ×4 (06:03→21:07)
[2016-11-04] MEDS: CULTURELLE PO SCH (08:58)
[2016-11-04] MEDS: SODIUM BICARBONATE PO SCH ×3 (08:58→16:36)
[2016-11-04] MEDS: LANOXIN IV SCH (09:01)
--- NOTE | 2016-11-04 22:01 | PROGRESS NOTE ---
DATE: 11/04/2016 SUBJECTIVE: The patient is much more alert off IV fluids. Blood pressure is on the low side. Able to eat very well. More coherent and had a bowel movement. No blood and no diarrhea. OBJECTIVE: Vital Signs: Afebrile. Vitals are stable. Nasal oxygen 2 L. HEENT: Exam within normal limits. Neck: Supple. Chest: Clear to auscultation. Heart: Sounds are irregular. Abdomen: Belly is soft, nontender. Inguinal hernia present on the right side. Extremities: No peripheral edema, cyanosis. Neurologic: No obvious neurological deficits. LABORATORY: No labs were done. ASSESSMENT AND PLAN: 1. Chronic kidney disease. Back to the baseline, off IV fluids. 2. Atrial fibrillation on IV digitalis. 3. Clostridium difficile colitis. On metronidazole p.o. vancomycin. PLAN OF CARE: Out of the bed. If he is stable hemodynamically, eating well, we will transfer out of the ICU in the morning. LEVEL OF DOCUMENTATION: 25 minutes. I discussed with the patient's in my office yesterday about his plan of care. cc: Dennis Chiu MD
[2016-11-05] MEDS: VANCOCIN PO SCH ×4 (02:12→19:51)
[2016-11-05] MEDS: FLAGYL 250 MG/NS 250 MG/50 ML IVPB IV SCH ×4 (03:02→23:12)
[2016-11-05] MEDS: HUMULIN R SUBQ SCH ×3 (06:19→16:45)
[2016-11-05 06:32] LABS: HEMOGLOBIN 10.5 g/dL (14.0-18.0); MCH 30.3 PG (27-31); MCHC 33.9 g/dL (33-37); MCV 89.6 FL (81-99); MPV 10.7 FL (7.4-10.4); RBC 3.46 XMIL (4.7-6.1)
[2016-11-05 07:05] LABS: CALCIUM 8.4 mg/dL (8.8-10.2); POTASSIUM 3.4 mmol/L (3.5-5.1)
[2016-11-05] MEDS: SODIUM BICARBONATE PO SCH (08:15)
[2016-11-05] MEDS: CULTURELLE PO SCH (08:15)
[2016-11-05] MEDS: LANOXIN IV SCH (08:17)
--- NOTE | 2016-11-05 09:13 | PROGRESS NOTE ---
DATE: 11/05/2016 SUBJECTIVE: No new complaints today. No abdominal pain. No nausea or vomiting. OBJECTIVE: Vital Signs: Blood pressure 107/64, heart rate 91, respirations 15, afebrile. Intake 1 L. Output 900 mL. PHYSICAL EXAMINATION: No acute distress. Skin is warm and dry. Conjunctivae are pink. Neck veins are not distended. Heart is regular. Lungs have equal breath sounds. No crackles. Abdomen is soft, nontender. Bowel sounds present. Extremities have 1+ edema. No clubbing or cyanosis. LABORATORY DATA: Sodium 145, potassium 3.4, chloride 114, bicarbonate 19, BUN 19, creatinine 1.9. IMPRESSION: Acute kidney injury overlying chronic kidney disease. He has returned to his historical baseline. Acid-base and electrolytes are acceptable. I will sign off at this time. If I can be of further assistance, please do not hesitate to call. cc: MD Dennis Henriquez MD
[2016-11-05] MEDS ORDERED: KLOR-CON PO ONE (18:53)
--- NOTE | 2016-11-05 19:25 | PROGRESS NOTE ---
DATE: 11/05/2016 SUBJECTIVE: Patient is doing much better. Off IV fluids. Blood pressure is coming up. No nausea, vomiting, diarrhea. He had a soft bowel movements. REVIEW OF SYSTEMS: None reported. PHYSICAL EXAMINATION: Vital signs: Afebrile. Blood pressure is 99/56 on nasal cannula 2 L. I's and O's are -1.1 L. HEENT: Within normal limits. Chest: Clear. Heart: Irregular heart sounds. Belly: Is soft, nontender. Good bowel sounds. Inguinal hernia present. Extremities: No peripheral edema, cyanosis. Neuro: No obvious neurological deficits. INVESTIGATIONS: CBC, white cell count 12, hematocrit 31, platelet 138,000. SMA 7. Sodium 145, potassium 3.4, chloride 114, BUN 19, creatinine 1.9, magnesium 1.5. ASSESSMENT AND PLAN: 1. Acute kidney injury resolving. Baseline creatinine is 1.9. 2. Hypokalemia. Replace the potassium. 3. Ileus is resolving. 4. Right inguinal hernia stable. 5. Clostridium difficile colitis. Continue on Flagyl and vancomycin. 6. Atrial fibrillation. Rate is well controlled. PLAN OF CARE: Discontinue Maldonado. Transferred out of the ICU to step-down unit. Discussed with the family. LEVEL OF DOCUMENTATION: 25 minutes. cc: Dennis Chiu MD
[2016-11-06] MEDS: VANCOCIN PO SCH ×4 (03:00→19:29)
[2016-11-06] MEDS: FLAGYL 250 MG/NS 250 MG/50 ML IVPB IV SCH ×4 (03:57→23:16)
[2016-11-06] MEDS: CULTURELLE PO SCH (08:07)
[2016-11-06] MEDS: LANOXIN IV SCH (08:08)
[2016-11-06] MEDS: KLOR-CON PO SCH (10:10)
--- NOTE | 2016-11-06 11:22 | PROGRESS NOTE ---
DATE: 11/06/2016 SUBJECTIVE: The patient says he is feeling better. He is not having any diarrhea. OBJECTIVE: Temperature is slightly up at 99.1 degrees Fahrenheit. Blood pressure is 109/56, respirations 16, pulse 83, oxygen saturation is 100%. HEENT is normocephalic. Throat clear. Lungs clear to auscultation and percussion without rhonchi, rales, or wheezes. Heart is irregularly irregular without murmurs, gallops, or friction rubs. Abdomen soft with active bowel sounds. No organomegaly or tenderness. Neurological exam intact grossly. LABORATORY: Shows a white count of 12,610. Hemoglobin 10.5. Potassium slightly low at 3.4. Creatinine is 1.9 which is an improvement. BUN is 19. ASSESSMENT: 1. Acute kidney injury resolving. Patient back to baseline with creatinine. 2. Hypokalemia. 3. Resolving ileus. 4. Right inguinal hernia, stable. 5. Clostridium difficile colitis. 6. Atrial fibrillation, intermittent. PLAN: Continue care. cc: MD Dennis Menendez Jr, MD
[2016-11-07] MEDS: VANCOCIN PO SCH ×4 (03:43→19:55)
[2016-11-07] MEDS: FLAGYL 250 MG/NS 250 MG/50 ML IVPB IV SCH ×4 (03:43→17:26)
[2016-11-07 05:26] LABS: BASO% 0.2 % (0.0-0.8); EOS# 0.14 X1000 (0.0-0.7); EOS% 1.2 % (0.0-10.0); HEMATOCRIT 30.3 % (42.0-52.0); HEMOGLOBIN 10.3 g/dL (14.0-18.0); IMM GRAN# 0.05 X1000 (0.0-0.04); IMM GRAN% 0.4 % (0.0-0.5); LYMPH# 0.91 X1000 (1.2-3.4); LYMPH% 7.7 % (20.5-51.1); MANUAL DIFF NEEDED? YES; MCH 30.5 PG (27-31); MCV 89.6 FL (81-99); MONO# 0.91 X1000 (0.11-0.59); MONO% 7.7 % (1.7-9.3); NEUT% 82.8 % (42.2-75.2); PLT 170 X1000 (130-400); RBC 3.38 XMIL (4.7-6.1)
[2016-11-07 06:29] LABS: POTASSIUM 4.5 mmol/L (3.5-5.1)
[2016-11-07 07:29] LABS: LYMPHS 8 % (21-51); MONO 4 % (1-9)
[2016-11-07] MEDS: KLOR-CON PO SCH (08:45)
[2016-11-07] MEDS: LANOXIN IV SCH (08:45)
[2016-11-07] MEDS: CULTURELLE PO SCH (08:45)
--- NOTE | 2016-11-07 11:07 | PROGRESS NOTE ---
DATE: 11/07/2016 SUBJECTIVE: The patient says he is feeling a little bit better but did have some diarrhea yesterday and his stomach is churning a little bit today. He says he is not hurting very much with this, however. OBJECTIVE: Vital Signs: Blood pressure is 109/64, respirations 16, pulse 64, temperature 98.8 degrees Fahrenheit. HEENT: Normocephalic. EOMs intact. PERRLA. Throat clear. Lungs: Clear to auscultation and percussion without rhonchi, rales, or wheezes. Heart: Regular rate and rhythm most of the time. Occasionally I hear an extra beat. His telemetry shows he goes in and out of atrial fibrillation. Abdomen: Soft with hyperactive bowel sounds. Neurological: Intact grossly. At this time I see no DTs. ASSESSMENT: 1. Acute renal failure with creatinine down to 1.5 now. 2. Atrial fibrillation. 3. Clostridium difficile. 4. Delirium tremens. 5. Chronic renal failure. PLAN: Continue support with antibiotics. cc: MD Dennis Menendez Jr, MD
[2016-11-08] MEDS: FLAGYL 250 MG/NS 250 MG/50 ML IVPB IV SCH ×5 (01:05→17:04)
[2016-11-08] MEDS: VANCOCIN PO SCH ×4 (02:05→20:38)
[2016-11-08 05:11] LABS: MANUAL DIFF NEEDED? NO
[2016-11-08 05:19] LABS: BASO% 0.3 % (0.0-0.8); EOS# 0.13 X1000 (0.0-0.7); EOS% 1.4 % (0.0-10.0); HEMATOCRIT 31.1 % (42.0-52.0); HEMOGLOBIN 10.5 g/dL (14.0-18.0); IMM GRAN# 0.04 X1000 (0.0-0.04); IMM GRAN% 0.4 % (0.0-0.5); LYMPH# 0.85 X1000 (1.2-3.4); LYMPH% 9.1 % (20.5-51.1); MCH 30.3 PG (27-31); MCHC 33.8 g/dL (33-37); MCV 89.9 FL (81-99); MONO# 0.67 X1000 (0.11-0.59); MONO% 7.2 % (1.7-9.3); MPV 10.8 FL (7.4-10.4); NEUT% 81.6 % (42.2-75.2); PLT 178 X1000 (130-400); RBC 3.46 XMIL (4.7-6.1)
[2016-11-08 05:36] LABS: POTASSIUM 4.6 mmol/L (3.5-5.1)
[2016-11-08] MEDS: KLOR-CON PO SCH (08:23)
[2016-11-08] MEDS: COREG PO SCH ×2 (08:23→21:33)
[2016-11-08] MEDS: CORDARONE PO SCH (08:23)
[2016-11-08] MEDS: ASPIRIN EC PO SCH (08:23)
[2016-11-08] MEDS: CULTURELLE PO SCH (08:23)
[2016-11-08] MEDS: ALDACTONE PO SCH (08:23)
[2016-11-08] MEDS: ISORDIL PO SCH (08:23)
[2016-11-08] MEDS: LANOXIN PO SCH (08:27)
--- NOTE | 2016-11-08 08:39 | PROGRESS NOTE ---
DATE: 11/08/2016 SUBJECTIVE: Interval history was reviewed. The patient was seen in the stepdown unit. He is not eating well. He is extremely weak and feeble, not able to walk in and out of the bed. REVIEW OF SYSTEMS: Trouble of swallowing. No chest pain, shortness of breath. GI: Passing bowels. No diarrhea. PHYSICAL EXAMINATION: Vital Signs: He is afebrile. Pulse is 58, blood pressure is 110/68. HEENT: Examination within normal limits. Neck: Supple. No lymphadenopathy. Chest: Clear. Heart: Heart sounds are irregularly irregular. Abdomen: Belly is soft, nontender. Good bowel sounds. Hernia present on the right side. Extremities: No peripheral edema. Neurologic: No obvious neurological deficits. Investigations: CBC: White cell count 9.3, hematocrit 32, platelets 178,000. SMA 7: Sodium 140, potassium 4.6, chloride 109, BUN 10, creatinine 1.4, glucose 95. ASSESSMENT AND PLAN: 1. Chronic renal failure, stable. 2. Chronic ischemic cardiomyopathy, ejection fraction 30%, associated with atrial fibrillation. Restart the medicine on Cordarone, Coreg, isosorbide, and Aldactone. 3. Atrial fibrillation. Change the Lanoxin 62.5 mcg every day. 4. Clostridium difficile colitis, on vancomycin and Flagyl. 5. Possible gastrointestinal bleeding. Not able to eat. Since he has stable, consult with gastroenterology, Dr. Mcallister. 6. Deconditioning. Inpatient physical therapy. 7. Disposition. director of radio services consult for rehab placement. LEVEL OF DOCUMENTATION: 35 minutes. cc: Dennis Chiu MD
[2016-11-09] MEDS: FLAGYL 250 MG/NS 250 MG/50 ML IVPB IV SCH ×5 (00:08→23:33)
[2016-11-09] MEDS: VANCOCIN PO SCH ×4 (02:57→20:12)
[2016-11-09 05:20] LABS: BASO% 0.3 % (0.0-0.8); EOS# 0.15 X1000 (0.0-0.7); EOS% 1.7 % (0.0-10.0); HEMATOCRIT 28.3 % (42.0-52.0); HEMOGLOBIN 9.6 g/dL (14.0-18.0); IMM GRAN# 0.03 X1000 (0.0-0.04); IMM GRAN% 0.3 % (0.0-0.5); LYMPH# 0.93 X1000 (1.2-3.4); LYMPH% 10.5 % (20.5-51.1); MANUAL DIFF NEEDED? YES; MCH 30.5 PG (27-31); MCHC 33.9 g/dL (33-37); MCV 89.8 FL (81-99); MONO# 0.75 X1000 (0.11-0.59); MONO% 8.5 % (1.7-9.3); MPV 10.9 FL (7.4-10.4); NEUT% 78.7 % (42.2-75.2); PLT 192 X1000 (130-400); RBC 3.15 XMIL (4.7-6.1)
[2016-11-09 06:02] LABS: AGAP 10; BUN 9 mg/dL (8-22); CHLORIDE 108 mmol/L (98-107); COSMO 274; POTASSIUM 4.8 mmol/L (3.5-5.1); SODIUM 138 mmol/L (136-145); TCO2 20 mmol/L (25-35)
[2016-11-09 07:10] LABS: HYPOCHROM 1+; LYMPHS 6 % (21-51); MONO 4 % (1-9)
[2016-11-09] MEDS ORDERED: INJECTAFER IV ONE (07:41)
[2016-11-09] MEDS: CORDARONE PO SCH (08:00)
[2016-11-09] MEDS: CULTURELLE PO SCH (08:00)
[2016-11-09] MEDS: ASPIRIN EC PO SCH (08:00)
[2016-11-09] MEDS: KLOR-CON PO SCH (08:00)
[2016-11-09] MEDS: ALDACTONE PO SCH (08:00)
[2016-11-09] MEDS: ISORDIL PO SCH (08:00)
[2016-11-09] MEDS: COREG PO SCH ×2 (08:00→20:12)
--- NOTE | 2016-11-09 08:33 | PROGRESS NOTE ---
DATE: 11/09/2016 SUBJECTIVE: The patient is still weak and feeble. Not eating well. Slowly getting out of the bed. REVIEW OF SYSTEMS: None reported. PHYSICAL EXAMINATION: Vital Signs: Afebrile. Pulse is 57, blood pressure is 116/62, weight 143 pounds. I's and O's even. HEENT: Within normal limits. Neck: Supple. Chest: Clear to auscultation. Heart: Sounds are regular. Abdomen: Belly is soft, nontender. Good bowel sounds. Hernia present on the right side. Extremities: No peripheral edema, cyanosis, clubbing. LABS: CBC, white cell count 8.8, hematocrit 28, platelet count 192. SMA-7: Sodium 138, potassium 4.8, chloride 108, BUN 9, creatinine 1.3, glucose 8.0, magnesium 1.5. ASSESSMENT AND PLAN: 1. Chronic kidney disease. Stable. 2. Hypotension resolving. 3. Atrial fibrillation/paroxysmal atrial fibrillation. Currently in sinus on Cordarone, Lanoxin, Coreg and Aldactone. 4. Clostridium difficile colitis. Day 8 on Flagyl and vancomycin, slowly will discontinue Flagyl. 5. Right inguinal hernia. Stable. 6. Anemia. Heme-positive stools. We will ask Dr. Mcallister to look at since he is stable. Hematocrit is 28. Will give 1 dose of iron infusion today. 7. Out of the bed with physical therapy. Once he is stable, we will attempt to discharge to rehab. cc: Dennis Chiu MD
[2016-11-09] MEDS ORDERED: INJECTAFER 750 MG in NS 250 ML IV ONE (09:00)
[2016-11-10] MEDS: VANCOCIN PO SCH ×4 (03:10→21:27)
[2016-11-10] MEDS: FLAGYL 250 MG/NS 250 MG/50 ML IVPB IV SCH ×4 (05:22→23:14)
[2016-11-10 05:27] LABS: BASO% 0.5 % (0.0-0.8); EOS# 0.13 X1000 (0.0-0.7); EOS% 1.7 % (0.0-10.0); HEMATOCRIT 29.5 % (42.0-52.0); HEMOGLOBIN 9.8 g/dL (14.0-18.0); IMM GRAN# 0.03 X1000 (0.0-0.04); IMM GRAN% 0.4 % (0.0-0.5); LYMPH# 0.98 X1000 (1.2-3.4); LYMPH% 12.6 % (20.5-51.1); MANUAL DIFF NEEDED? YES; MCH 29.6 PG (27-31); MCHC 33.2 g/dL (33-37); MCV 89.1 FL (81-99); MONO# 0.76 X1000 (0.11-0.59); MONO% 9.8 % (1.7-9.3); MPV 10.9 FL (7.4-10.4); PLT 207 X1000 (130-400); RBC 3.31 XMIL (4.7-6.1)
[2016-11-10 05:46] LABS: AGAP 9; ALBUMIN 1.6 g/dL (3.5-5.0); ALKALINE PHOSPHATASE 65 U/L (32-122); BUN 7 mg/dL (8-22); CALCIUM 8.2 mg/dL (8.8-10.2); CHLORIDE 107 mmol/L (98-107); COSMO 269; GOT 9 U/L (10-34); GPT < 5 U/L (10-44); POTASSIUM 5.3 mmol/L (3.5-5.1); SODIUM 136 mmol/L (136-145); TCO2 20 mmol/L (25-35)
[2016-11-10 07:14] LABS: EOS 1 % (1-10); LYMPHS 11 % (21-51); MONO 7 % (1-9)
--- NOTE | 2016-11-10 08:17 | Diag Imaging Result Doc PS360 ---
CHEST-2 VIEWS - 11/10/2016 INDICATION: hypoxia TECHNIQUE: COMPARISON: 11/01/2016 FINDINGS: There is slight worsening fine interstitial infiltrates compatible with pulmonary edema. Stable trace pleural effusions. Stable cardiomegaly and pulmonary vascular congestion. IMPRESSION: Slight worsening in interstitial pulmonary edema. Electronically signed by Rome Noble 11/10/2016 8:15 AM
[2016-11-10] MEDS: ISORDIL PO SCH (08:34)
[2016-11-10] MEDS: ASPIRIN EC PO SCH (08:34)
[2016-11-10] MEDS: KLOR-CON PO SCH (08:34)
[2016-11-10] MEDS: CORDARONE PO SCH (08:34)
[2016-11-10] MEDS: CULTURELLE PO SCH (08:35)
[2016-11-10] MEDS: ALDACTONE PO SCH (08:35)
[2016-11-10] MEDS: LANOXIN PO SCH (08:35)
[2016-11-10] MEDS: COREG PO SCH ×2 (08:37→21:27)
[2016-11-11] MEDS: VANCOCIN PO SCH ×4 (02:13→20:36)
--- NOTE | 2016-11-11 03:19 | PROGRESS NOTE ---
DATE: 11/10/2016 SUBJECTIVE: The patient is extremely feeble, not eating, not walking, not able to stand on his own. Physical therapy was consulted. Plan for chest x-ray. Not offering any complaints. PHYSICAL EXAMINATION: Vital Signs: Stable. Is and Os: Negative 300. HEENT: Examination within normal limits. Chest: Clear. Heart: Heart sounds are regular, in sinus. Abdomen: Belly is soft, nontender. Good bowel sounds. Extremities: No peripheral edema. Investigations: CBC: White cell count 7.7, hematocrit 29.5, platelets 207, 000. SMA-7: Sodium 136, potassium 5.3, chloride 107, BUN 7, creatinine 1.2. LFTs were normal. Total protein is 5, albumin 1.6. ASSESSMENT AND PLAN: 1. Right upper lobe pneumonia. Incentive spirometry. Stable. Probable aspiration. 2. Paroxysmal atrial fibrillation, currently in sinus on Cordarone, Coreg, and Lanoxin every other day. 3. Clostridium difficile colitis, on metronidazole and vancomycin. 4. Deconditioning, not able to walk. Continue aggressive physical therapy. PLAN: Probably, if he is stable, will be transferred to rehab on Tuesday , Discussed with the patient eat and able to walk with assistance to the bathroom. LEVEL OF DOCUMENTATION: 25 minutes. cc: Dennis [facility]iu MD [facility]
[2016-11-11] MEDS: FLAGYL 250 MG/NS 250 MG/50 ML IVPB IV SCH ×4 (05:44→23:16)
[2016-11-11] MEDS: COREG PO SCH (09:18)
[2016-11-11] MEDS: CORDARONE PO SCH (09:18)
[2016-11-11] MEDS: KLOR-CON PO SCH (09:18)
[2016-11-11] MEDS: ASPIRIN EC PO SCH (09:18)
[2016-11-11] MEDS: CULTURELLE PO SCH (09:18)
[2016-11-11] MEDS: ALDACTONE PO SCH (09:18)
[2016-11-11] MEDS: ISORDIL PO SCH (09:18)
--- NOTE | 2016-11-11 20:52 | PROGRESS NOTE ---
DATE: 11/11/2016 SUBJECTIVE: The patient extremely feeble, not able to get up on his own and not eating well except ice creams. REVIEW OF SYSTEMS: None reported. PHYSICAL EXAMINATION: Vital Signs: Stable, blood pressure is on the low side. HEENT: Within normal limits. Chest: Clear. Heart: Sounds are regular. Abdomen: Belly is soft, nontender. Good bowel sounds. Extremities: No peripheral edema, cyanosis. Neurologic: No obvious neurological deficits. ASSESSMENT AND PLAN: 1. Paroxysmal atrial fibrillation, in sinus. 2. Chronic systolic heart failure. Stable. 3. C. Difficile colitis is improving. 4. Deconditioning. Aggressive physical therapy. 5. Anemia. Stable. 6. Chronic kidney disease. Stable. Discussed with the patient he needs to get out of the bed. Continue to monitor, and if he is stable, will go for rehab in the morning. cc: Dennis Chiu MD
[2016-11-12] MEDS: COREG PO SCH ×2 (01:51→08:42)
[2016-11-12] MEDS: VANCOCIN PO SCH ×2 (03:59→08:41)
[2016-11-12] MEDS: FLAGYL 250 MG/NS 250 MG/50 ML IVPB IV SCH ×2 (05:26→11:07)
--- NOTE | 2016-11-12 08:37 | DISCHARGE SUMMARY ---
ADMISSION DATE: 10/24/2016 DISCHARGE DATE: 11/12/2016 DISCHARGING DIAGNOSIS: Altered mental status due to metabolic encephalopathy. SECONDARY DIAGNOSES: 1. Acute kidney injury with chronic renal failure due to hypotension. Baseline creatinine is 1.9. 2. Paroxysmal atrial fibrillation. 3. History of alcohol abuse. 4. History of tobacco abuse. 5. Type 2 diabetes. 6. Vitamin B 12 deficiency. 7. Hyperkalemia due to SEGUNDO inhibitors. 8. History of prostate cancer, history of colon cancer. Stable. 9. Clostridium difficile colitis. Resolving. 10. Aspiration pneumonia in the right upper lobe. 11. Deconditioning. 12. Withdrawals, delirium from the alcohol, stable. 13. Right inguinal hernia. 14. History of penile implant. 15. History of chronic systolic heart failure with ejection fraction 35%. CONSULTATIONS: 1. Dr. Lopez. 2. Dr. Mcallister. PROCEDURES: None, except transfusion of 1 unit of packed RBCs. BRIEF HISTORY: Please see the H and P that was done by hospitalist, Dr. Genao. In brief, he is a 76-year-old, pleasant, male with multiple medical problems as above, who presented to the hospital with mental confusion, hypotension, heme-positive stools, diarrhea associated with delirium. The patient was admitted in ICU, and I am going to summarize the problems as follows: 1. Altered mental status due to delirium from metabolic encephalopathy. He was smoking and drinking as per the . He was given Ativan as needed and restraints. He did not have any seizures. 2. Hypotension. He was started on IV fluids and IV dopamine, and slowly weaned off vasopressors. 3. Acute kidney injury. Creatinine is 5.4. Ultrasound of the kidneys showed no hydronephrosis. Maldonado catheter was placed. Dr. Lopez closely monitored, and his renal functions came back to the baseline after correcting the hypotension. IV fluids were stopped. Baseline creatinine came back 1.4. 4. Diarrhea, heme-positive stools. Dr. Mcallister was consulted. He was too unstable to do an EGD and colonoscopy. He was given a unit of packed RBC, as well as iron infusion. There were no signs of active bleeding noted. Stool cultures positive for Clostridium difficile colitis. He was given p.o. vancomycin, IV Flagyl for 10 days. Follow up stools were negative. 5. Nausea, abdominal pain. He has complete non reducible right inguinal hernia. He was too sick to be operated. It is non obstructed. He has been tolerating the diet without any obstructive symptoms. Once his condition is stable, I would recommend an elective herniorrhaphy down the line. 6. Deconditioning. From all these things he is just feeble. He needs intensive physical therapy. 7. He also developed aspiration pneumonia in the right side, which is stable. Continue on Flagyl and incentive spirometry. 8. Paroxysmal atrial fibrillation. Started on Cordarone and Lanoxin. Currently in sinus. With all his problems his who has been sick, decided to send him to rehab for convalescence. At the time of discharge, patient is stable. His blood pressure is 113/62, weight 134 pounds. LABS: CBC: White cell count 7.7, hematocrit 29.8, platelet count 207. Sodium 136, potassium 5.3, chloride 107. BUN 7, creatinine 1.2. LFTs were normal. Albumin is 1.6. FOLLOWUP: Stool cultures 11/11/2016 negative for Clostridium difficile. DISCHARGE INSTRUCTIONS: Pneumococcal vaccine 2014, isosorbide 10 mg daily, hydralazine 10 daily, Coreg 6.25 p.o. b.i.d., Cordarone 200 daily, Aldactone 25 mg daily, aspirin 81 mg daily, Hold the blood pressure medicine if systolic blood pressure less than 100. Continue to monitor orthostatic blood pressure. Discontinue NSAIDs. Ultracet or Tylenol as needed for pain. Flagyl 250 q. 8 hours for 7 days. Probiotics 1 tablet daily. Repeat CBC, SMA 7, and chest x-ray in 1 week. Follow up in my office in 2 weeks. cc: Dennis Chiu MD [facility]
[2016-11-12] MEDS: ASPIRIN EC PO SCH (08:40)
[2016-11-12] MEDS: LANOXIN PO SCH (08:41)
[2016-11-12] MEDS: ALDACTONE PO SCH (08:41)
[2016-11-12] MEDS: CULTURELLE PO SCH (08:41)
[2016-11-12] MEDS: CORDARONE PO SCH (08:42)
[2016-11-12] MEDS: ISORDIL PO SCH (08:42)
[2016-11-12] MEDS: KLOR-CON PO SCH (08:44)
[2016-11-12 11:54] VITALS: BP 105/50
--- NOTE | 2016-11-17 01:32 | PROVIDER DOCUMENTATION ---
This chart was entered by Anitra Chavis Scribe, acting as scribe for Gautam Amos MD. HPI-General Adult - General Chief Complaint: Altered Mental Status Stated Complaint: ams Time Seen by Provider: 10/24/16 18:26 Source: patient, EMS Allergies/Adverse Reactions: Patient Allergies Allergy/AdvReac Type Severity Reaction Status Date / Time Penicillins Allergy HIVES Verified 10/20/16 12:57 Home Medications: Home Medication List Medication Instructions Recorded Confirmed Last Taken Type Amiodarone [Cordarone] 200 mg PO DAILY 09/15/14 10/25/16 10/19/16 History Carvedilol [Coreg] 6.25 mg PO BID 09/15/14 10/25/16 10/19/16 History Hydralazine [Apresoline] 10 mg PO DAILY 09/15/14 10/25/16 10/19/16 History Isosorbide Dinitrate 10 mg PO DAILY 09/15/14 10/25/16 10/19/16 History Spironolactone 25 mg PO DAILY 09/15/14 10/25/16 10/19/16 History Aspirin [Aspirin EC] 81 mg PO DAILY 10/25/16 10/25/16 Unknown History Iron Carbonyl/Vit C/Vit B12/FA 1 each PO DAILY #30 tablet 11/12/16 Unknown Rx [Icar-C Plus] Lactobacillus Rhamnosus GG 1 each PO DAILY #30 capsule 11/12/16 Unknown Rx [Culturelle] Metronidazole [Flagyl] 250 mg PO TID #21 tablet 11/12/16 Unknown Rx - History of Present Illness -Gen Adult Nature of Presenting Problems: Pt is a 76 year old male who came to the ED with a cc of being unresponsive. Pt family reports last night the pt was hallucinating last which was not normal. Pt today was seen by the home [place] nurse who called 911. Pt was unresponsive. Pt lives in a house with no air conditioning. Pt responds to sternal rubs. Location of Pain/Injury: reports: none Pain Radiation: reports: no radiation Quality of Pain: reports: none Severity: reports: moderate Onset/Duration: reports: unsure Timing: reports: still present Context/Activities at Onset: reports: none Modifying Factors: improves with: nothing Associated Symptoms: reports: weakness Similar Symptoms Previously?: No Recently seen or treated by another doctor?: No Review of Systems - Adult - REVIEW OF SYSTEMS - ADULT ROS:: unobtainable per condition Constitutional: reports: no symptoms reported Eyes: reports: no symptoms reported Ears, Nose, Mouth & Throat: reports: no symptoms reported Cardiovascular: reports: no symptoms reported Respiratory: reports: no symptoms reported Gastrointestinal: reports: rectal bleeding Genitourinary: reports: no symptoms reported Musculoskeletal: reports: no symptoms reported Integumentary: reports: no symptoms reported Neurological: reports: no symptoms reported Psychiatric: reports: no symptoms reported Endocrine: reports: no symptoms reported Hematologic/Lymphatic: reports: no symptoms reported Allergic/Immunologic: reports: no symptoms reported All Other Systems: Reviewed and Negative Past History - Adult - PAST MEDICAL HISTORY-ADULT Review of Records: reports: Old Records Reviewed, Nursing Assessment Review, Medications Reviewed, Social history reviewed & non-contributory. Major Childhood Illnesses: reports: denies history Cardiovascular: reports: CHF, HTN, [place] (acute) Respiratory: reports: COPD Gastrointestinal: reports: cancer Obstetrical/Gynecological: reports: denies history Genitourinary: reports: denies history Musculoskeletal: reports: denies history Neurological: reports: denies history Endocrine/Immune: reports: denies history Other Conditions: reports: denies history - PRIOR SURGERIES/PROCEDURES Surgical/Procedure History: reports: reviewed, not pertinent - IMMUNIZATION STATUS Childhood Immunizations: See Nurse Assessment Flu Vaccine: See Nurse Assessment - FAMILY HISTORY Family History: reviewed, not pertinent Physical Exam-General - PHYSICAL EXAM-ADULT Exam Limited by: MENTAL STATUS Initial Vital Signs Reviewed: Yes - CONSTITUTIONAL General Appearance: no apparent distress, lethargic - EYES Eyes: pink conjunctivae, anisocoria - HEAD, EARS, NOSE, MOUTH & THROAT HENMT: normocephalic/atraumatic, moist mucous membranes - NECK Neck: non-tender, full range of motion - RESPIRATORY Respiratory: chest non-tender, lungs clear, normal breath sounds - CARDIOVASCULAR Cardiovascular: normal peripheral pulses, systolic murmur (2/6) - GASTROINTESTINAL (ABDOMEN) Abdominal Exam: normal bowel sounds, non tender, soft - MUSCULOSKELETAL Back Exam: normal inspection, no CVA tenderness Extremity: negative: normal range of motion, non-tender, normal gait - SKIN Integumentary: normal color, warm/dry - NEUROLOGIC Neurologic: grossly normal - PSYCHIATRIC Psych/Mental Status: normal mood/affect, normal thought content, normal thought process, oriented x 3 Progress - PLAN OF CARE/RESULTS Progress/Plan/Lab Results: Orders Category Date Time Status Cardiac Monitoring DIRECTED Care 10/24/16 18:17 Active Finger Stick Blood Sugar (ED) DIRECTED Care 10/24/16 18:17 Inactive Oxygen Therapy- ED Nursing DIRECTED Care 10/24/16 18:17 Active Saline Loc NOW Care 10/24/16 18:17 Active CHEST-PORTABLE [RAD] Stat Exams 10/24/16 18:17 Ordered CBC WITH ELECTRONIC DIFF [HEME] Stat Lab 10/24/16 18:17 Ordered CK PROFILE [SP CHEM] Stat Lab 10/24/16 18:17 Ordered COMPREHENSIVE METABOLIC PANEL [CHEM] Stat Lab 10/24/16 18:17 Ordered LACTATE, PLASMA [CHEM] Stat Lab 10/24/16 18:[address]IME WITH INR PL [COAG] Stat Lab 10/24/16 18:[address] [COAG] Stat Lab 10/24/16 18:17 Ordered TROPONIN T Stat Lab 10/24/16 18:[address] W/POSS RFLX CULT [URINALYSIS] Stat Lab 10/24/16 18:17 Uncollected 0.9% Sodium Chloride Inj [Ns] 1,000 ml Med 10/24/16 18:21 Discontinued .ROUTE As Directed Pulse Oximetry Stat Oth 10/24/16 18:17 Active EKG [EKG] Stat Ther 10/24/16 18:17 Ordered Result Diagrams: 11/10/16 04:40 11/10/16 04:40 - EKG 1 Time of EKG reading by physician:: 18:33 EKG Read and Signed by:: Gautam Amos EKG Interpretation (*Must complete 3 of following elements*): Abnormal Rate: 79 (possible inferior infarct, age undetermined; ST and T wave abnormality , consider anterolateral ischemia) Rhythm: sinus rhythm w 1st degree AV block Departure - Departure Date of Disposition Decision: 10/25/16 Time of Disposition Decision: 01:30 DIAGNOSIS: Gastrointestinal hemorrhage Qualifiers: GI bleed type/associated pathology: unspecified gastrointestinal hemorrhage type Qualified Code(s): K92.2 - Gastrointestinal hemorrhage, unspecified Disposition: ADMITTED INPATIENT 09 Certified Medical Emergency: Emergent Condition: Critical - Critical Care Note This patient required my direct & personal management of CC.: Yes Attestation - Physician/ CRISTY Attestation The physician spent face to face time with patient:: Yes Advanced Practice Provider documentation review:: Supervising physician onsite and consulted in the evaluation and care of this patient. The physician did have a face to face encounter with the patient. This chart was documented by the indicated scribe, (Anitra Chavis Scribe) and accurately reflects the services I performed and decisions made by me, Gautam Amos MD, as attested by the provider's signature.
== END 2016-11-12 12:39 ==
LOC: P.ED 18:15 → ICU 21:09 → SUATTDRO 21:09 → ICU 21:57 → 3S 11-05 10:54
PROVIDERS: ADMIT Internal Medicine; ATTEND Internal Medicine

== ENCOUNTER 2016-12-16 16:17 | Inpatient (IN) ==
--- NOTE | 2016-12-16 20:33 | Diag Imaging Result Doc PS360 ---
EXAM: CHEST-PORTABLE HISTORY: loosing weight TECHNIQUE: Portable upright COMPARISON: 11/23/2016 FINDINGS: The lungs are well expanded. The heart is not enlarged. The vessels are not distended. There is a small infiltrate in the left base which has developed since the prior exam. No pleural effusions identified. IMPRESSION: Development of a small left basilar infiltrate. Electronically signed by Jaiden Fink 12/16/2016 8:31 PM
[2016-12-16 21:15] LABS: MANUAL DIFF NEEDED? NO
[2016-12-16 21:28] LABS: EOS# 0.04 X1000 (0.0-0.7); HEMATOCRIT 35.2 % (42.0-52.0); HEMOGLOBIN 11.4 g/dL (14.0-18.0); IMM GRAN# 0.03 X1000 (0.0-0.04); IMM GRAN% 0.8 % (0.0-0.5); LYMPH# 1.07 X1000 (1.2-3.4); LYMPH% 27.2 % (20.5-51.1); MCH 29.5 PG (27-31); MCHC 32.4 g/dL (33-37); MONO# 0.67 X1000 (0.11-0.59); MPV 10.4 FL (7.4-10.4); PLT 174 X1000 (130-400); RBC 3.87 XMIL (4.7-6.1)
[2016-12-16 22:04] LABS: AGAP 8; ALKALINE PHOSPHATASE 107 U/L (32-122); BUN 26 mg/dL (8-22); CALCIUM 8.1 mg/dL (8.8-10.2); CHLORIDE 112 mmol/L (98-107); COSMO 296; GOT 12 U/L (10-34); GPT < 5 U/L (10-44); POTASSIUM 4.8 mmol/L (3.5-5.1); SODIUM 146 mmol/L (136-145); TCO2 26 mmol/L (25-35); TOTAL BILIRUBIN 0.34 mg/dL (0.20-1.00); TOTAL PROTEIN 6.2 g/dL (6.3-8.3)
--- NOTE | 2016-12-17 00:03 | HISTORY AND PHYSICAL ---
PRIMARY CARE PHYSICIAN: Dr. Chiu. CHIEF COMPLAINT: Cough, weakness for about a week or so. HISTORY OF PRESENTING ILLNESS: A 76-year-old elderly male with a history of multiple medical problems including coronary disease, congestive heart failure, chronic kidney disease, diabetes mellitus type 2, atrial fibrillation and hypertension, who presented to the emergency department with a 1-week history of having cough and weakness. Patient is a poor historian. However, his son stated that he was getting more weak and was coughing and subsequently patient was brought to the emergency department. In the ER, he was evaluated and he had imaging done which did show a left basilar infiltrate suspicious for pneumonia. Subsequently, he will need hospitalization for further management. At the time of my examination, he had denied any headache, fever, chills, chest pain, hemoptysis, but complained of coughing and being weak. PAST MEDICAL HISTORY: Includes coronary artery disease, congestive heart failure, systolic dysfunction, EF of 30% or so, chronic kidney disease, history of prostate cancer, hyperlipidemia, atrial fibrillation, hypertension, diabetes mellitus type 2. PAST SURGICAL HISTORY: Coronary stent, right hemicolectomy, prostatectomy. ALLERGIES: Penicillin. CURRENT MEDICATIONS: As listed on medication reconciliation sheet. SOCIAL HISTORY: He states he is a former smoker. Admits to social alcohol use. Denies any illicit drug use. FAMILY HISTORY: No history of coronary disease. REVIEW OF SYSTEMS: Twelve point systems is as in HPI. Other systems negative. PHYSICAL EXAMINATION: GENERAL: Cooperative, friendly male. He is resting comfortably now. VITAL SIGNS: Temperature 97.4 degrees, pulse 90, respirations 16, blood pressure 95/65. HEENT: Atraumatic, normocephalic. Extraocular movements intact. NECK: No masses. CHEST: Bibasilar rales. CARDIOVASCULAR: Regular rate and rhythm. ABDOMEN: Soft. Positive bowel sounds. EXTREMITIES: No edema. NEUROLOGIC: He is awake, alert, oriented x2. GENITOURINARY: No bladder distention. SKIN: Warm. LABORATORIES AND STUDIES: Sodium 146, potassium 4.8, chloride 112, CO2 is 26, BUN is 26, creatinine is 2.2, glucose is 119. WBC is 3.93, hemoglobin 11.4, hematocrit 35.2, platelets 174,000. ASSESSMENT: A 76-year-old male with a history of coronary disease, congestive heart failure, chronic kidney disease, diabetes mellitus type 2, hypertension, atrial fibrillation and hyperlipidemia, who had presented to the emergency department with a 1-week history of having cough and worsening weakness. He was evaluated in the ER. He had imaging done which did show suspicion for pneumonia. Subsequently, he will need hospitalization for further management. 1. Suspected pneumonia. 2. Diabetes mellitus type 2. 3. Chronic kidney disease. 4. Atrial fibrillation. 5. Hypertension. 6. Generalized weakness. PLAN: 1. We will admit patient to medical floor with telemetry. 2. We will check blood cultures. Start patient on IV antibiotics. 3. We will put patient on sliding scale insulin regimen and monitor blood glucose. 4. We will monitor blood pressure. Resume antihypertensive agents. 5. We will monitor his renal function closely. 6. We will put patient on DVT prophylaxis with SCDs. 7. We will continue to follow and reassess. 8. Patient is a full code. cc: Mack Winter MD
[2016-12-17] MEDS: DUONEB (A & A) INH SCH ×7 (02:04→23:30)
[2016-12-17] MEDS: ROCEPHIN 1 GM in NS 50 ML IV SCH (03:22)
[2016-12-17] MEDS: ZITHROMAX 500 MG/NS 500 MG/250 ML IVPB IV SCH (03:59)
[2016-12-17 06:10] LABS: BASO% 2.2 % (0.0-0.8); EOS# 0.11 X1000 (0.0-0.7); EOS% 2.7 % (0.0-10.0); HEMATOCRIT 33.6 % (42.0-52.0); HEMOGLOBIN 10.7 g/dL (14.0-18.0); IMM GRAN# 0.02 X1000 (0.0-0.04); IMM GRAN% 0.5 % (0.0-0.5); LYMPH# 1.73 X1000 (1.2-3.4); LYMPH% 41.7 % (20.5-51.1); MANUAL DIFF NEEDED? YES; MCH 29.2 PG (27-31); MCHC 31.8 g/dL (33-37); MCV 91.8 FL (81-99); MONO# 0.91 X1000 (0.11-0.59); MONO% 21.9 % (1.7-9.3); MPV 9.9 FL (7.4-10.4); PLT 133 X1000 (130-400); RBC 3.66 XMIL (4.7-6.1)
[2016-12-17 06:12] LABS: CALCIUM 7.5 mg/dL (8.8-10.2); POTASSIUM 4.3 mmol/L (3.5-5.1)
[2016-12-17 06:26] LABS: URINE MICRO REVIEW NEEDED? NO; URINE SOURCE CLEAN CATCH
--- NOTE | 2016-12-17 06:27 | PROVIDER DOCUMENTATION ---
This chart was entered by Aniya Medina Scribe, acting as scribe for Matteo Read MD. HPI-General Adult - General Chief Complaint: General Adult Stated Complaint: WEAKNESS Time Seen by Provider: 12/16/16 18:21 Source: family Allergies/Adverse Reactions: Patient Allergies Allergy/AdvReac Type Severity Reaction Status Date / Time Penicillins Allergy HIVES Verified 11/23/16 15:35 Home Medications: Home Medication List Medication Instructions Recorded Confirmed Last Taken Type Amiodarone [Cordarone] 200 mg PO DAILY 09/15/14 12/16/16 10/19/16 History Carvedilol [Coreg] 3.125 mg PO BID 09/15/14 12/16/16 10/19/16 History Isosorbide Dinitrate 10 mg PO DAILY 09/15/14 12/16/16 10/19/16 History Aspirin [Aspirin EC] 81 mg PO DAILY 10/25/16 12/16/16 Unknown History Iron Carbonyl/Vit C/Vit B12/FA 1 each PO DAILY #30 tablet 11/12/16 12/16/16 Unknown Rx [Icar-C Plus] Lactobacillus Rhamnosus GG 1 each PO DAILY #30 capsule 11/12/16 12/16/16 Unknown Rx [Culturelle] - History of Present Illness -Gen Adult Nature of Presenting Problems: 76 year old M presents to the ED with a cc of weakness, decreased appetite, and losing weight per family. Family states that pt was at [facility] for a fall and states that he fell x2 while there. PT injured back in one of the falls. Family states since being home pt is getting weaker. PT states that pt came home from the hospital middle of November. Review of Systems - Adult - REVIEW OF SYSTEMS - ADULT Constitutional: denies: chills, fever Eyes: reports: no symptoms reported Ears, Nose, Mouth & Throat: reports: no symptoms reported Cardiovascular: denies: chest pain, palpitations Respiratory: denies: cough, shortness of breath Gastrointestinal: denies: nausea, vomiting Genitourinary: reports: no symptoms reported Musculoskeletal: reports: muscle weakness. denies: muscle aches Integumentary: denies: skin sores/ulcer, skin thickening Neurological: denies: dizziness/vertigo, headache/migraines Psychiatric: reports: no symptoms reported Endocrine: reports: no symptoms reported Hematologic/Lymphatic: reports: no symptoms reported Allergic/Immunologic: reports: no symptoms reported All Other Systems: Reviewed and Negative Past History - Adult - PAST MEDICAL HISTORY-ADULT Review of Records: reports: Nursing Assessment Review, Medications Reviewed Major Childhood Illnesses: reports: denies history Cardiovascular: reports: CHF, HTN, [place] (acute) Respiratory: reports: COPD Gastrointestinal: reports: cancer (colon) Obstetrical/Gynecological: reports: denies history Genitourinary: reports: denies history Musculoskeletal: reports: denies history Neurological: reports: denies history Endocrine/Immune: reports: denies history Other Conditions: reports: denies history - PRIOR SURGERIES/PROCEDURES Surgical/Procedure History: reports: bowel surgery, other (TURP) - IMMUNIZATION STATUS Childhood Immunizations: See Nurse Assessment Flu Vaccine: See Nurse Assessment - FAMILY HISTORY Family History: reviewed, not pertinent - SOCIAL HISTORY Smoking: non-smoker Substance Use: none/never Alcohol Use Frequency: never Living Situation: family Physical Exam-General - PHYSICAL EXAM-ADULT Initial Vital Signs Reviewed: Yes - CONSTITUTIONAL General Appearance: alert, cachetic - EYES Eyes: PERRL/EOMI, pink conjunctivae - RESPIRATORY Respiratory: chest non-tender, lungs clear, normal breath sounds - CARDIOVASCULAR Cardiovascular: normal peripheral pulses, regular rate, rhythm, no edema - GASTROINTESTINAL (ABDOMEN) Abdominal Exam: non tender, soft - SKIN Integumentary: normal color, normal turgor, warm/dry - PSYCHIATRIC Psych/Mental Status: normal mood/affect, normal thought content, normal thought process, oriented x 3 Progress - PLAN OF CARE/RESULTS Progress/Plan/Lab Results: Vital Signs - 8 hr 12/16/16 16:21 Temperature 97.4 F L Pulse Rate 90 Respiratory Rate 16 Blood Pressure 95/65 O2 Sat by Pulse Oximetry 98 Result Diagrams: 12/17/16 05:50 12/17/16 05:50 - XRAY 1 XRAY Study: Chest Impression: Abnormal ( FINDINGS: The lungs are well expanded. The heart is not enlarged. The vessels are not distended. There is a small infiltrate in the left base which has developed since the prior exam. No pleural effusions identified. IMPRESSION: Development of a small left basilar infiltrate. --Dr. Fink(radiologist)) - CONSULTS/PCP/HOSPITALIST Notification #1 *Consult/PCP/Hospitalist*: Dr. Winter(hospitalist) Time Discussed: 22:17 Reason/Comments: consult for admission Consult Disposition: Will see in ED, Admit Departure - Departure Date of Disposition Decision: 12/16/16 Time of Disposition Decision: 23:15 DIAGNOSIS: Altered mental state Qualifiers: Altered mental status type: unspecified Qualified Code(s): R41.82 - Altered mental status, unspecified Disposition: ADMITTED INPATIENT 09 Certified Medical Emergency: Emergent Condition: Fair - Critical Care Note This patient required my direct & personal management of CC.: No Attestation - Physician/ CRISTY Attestation Patient care was provided by Advanced Practice Provider:: No The physician spent face to face time with patient:: Yes Advanced Practice Provider documentation review:: Supervising physician onsite and consulted in the evaluation and care of this patient. The physician did have a face to face encounter with the patient. This chart was documented by the indicated scribe, (Aniya Medina Scribe) and accurately reflects the services I performed and decisions made by me, Matteo Read MD, as attested by the provider's signature.
[2016-12-17 06:37] LABS: BILIRUBIN URINE NEGATIVE (NEGATIVE); BLOOD URINE NEGATIVE (NEGATIVE); COLOR YELLOW; GLUCOSE URINE NEGATIVE (NEGATIVE); LEUKOCYTES URINE TRACE (NEGATIVE); NITRITE URINE NEGATIVE (NEGATIVE); PROTEIN URINE TRACE mg/dL (NEGATIVE); SP GRAVITY URINE 1.017; TURBIDITY URINE CLEAR (CLEAR); UROBILINOGEN URINE NORMAL (NORMAL)
[2016-12-17 06:39] LABS: UR EPITHELIAL CELLS <10 /HPF (<10); URINE BACTERIA NEGATIVE /HPF; URINE CULTURE NEEDED? YES; URINE RBC <10 /HPF (<10); URINE WBC <10 /HPF (<10)
[2016-12-17 07:33] LABS: BANDS 2 % (0-1); LYMPHS 46 % (21-51); MONO 4 % (1-9)
[2016-12-17 07:34] LABS: HYPOCHROM 1+
[2016-12-17] MEDS: ASPIRIN EC PO SCH (09:49)
[2016-12-17] MEDS: ICAR-C PLUS PO SCH (10:46)
[2016-12-17] MEDS: CULTURELLE PO SCH (10:47)
[2016-12-17] MEDS: CORDARONE PO SCH (16:31)
[2016-12-17] MEDS: HUMULIN R SUBQ SCH ×4 (16:31→22:14)
[2016-12-17] MEDS: ISORDIL PO SCH (16:32)
[2016-12-17] MEDS: COREG PO SCH ×2 (16:32→22:14)
[2016-12-17] MEDS: CLINIMIX E 4.25%-5% SOLUTION 1,000 ML IV SCH (18:30)
--- NOTE | 2016-12-17 18:57 | PROGRESS NOTE ---
DATE: 12/17/2016 PROGRESS NOTE LEVEL: 3. SUBJECTIVE: Interval history was reviewed. Patient was admitted yesterday on 12/16/2016 by hospitalist with altered mental status and cough and weakness. The patient was discharged on 11/12/2016 to the assisted. Apparently, patient is drinking whiskey again. Family was not there at the bedside. REVIEW OF SYSTEMS: HEENT: No headache. No vision problem. Cardiopulmonary: Cough. No shortness of breath, PND, orthopnea. No chest pain. No palpitations. GI: No nausea, vomiting, abdominal pain. : No history of hesitancy, frequency, dysuria. No swelling of feet. He is in diapers. Neurological: No focal symptoms or weakness. PAST MEDICAL HISTORY: Reviewed. PAST SURGICAL HISTORY: Reviewed. MEDICINES: Reviewed. OBJECTIVE: Vital Signs: Afebrile. Vitals are stable. 5 feet, 11 inches, 114 pounds. Input and output positive 330. HEENT: Slightly anemic. No jaundice. Pupils equal, reactive to light. Neck: Supple. No lymphadenopathy. No goiter. Chest: Bilateral air entry. No rales, no wheezing. Heart: Sounds are regular. Abdomen: Belly is soft, nontender. Inguinal hernia present on the right side. Extremities: No peripheral edema, cyanosis. No obvious neurological deficits. INVESTIGATIONS: CBC: White cell count 4.1, hematocrit 33, platelets 133,000. SMA 7: Sodium 149, potassium 4.3, BUN 25, creatinine 2.1. Calcium 7.5. Urinalysis is negative. Chest x-ray, small basilar infiltrate. ASSESSMENT AND PLAN: A 76-year-old male admitted to the hospital. 1. Possible left lower lobe aspiration pneumonia, on IV ceftriaxone and IV Zithromax. 2. Chronic kidney disease, stable. 3. Right inguinal hernia, stable. 4. History of Clostridium difficile colitis. Probiotics. 5. Paroxysmal atrial fibrillation, stable. 6. History of alcohol and tobacco abuse. 7. Vitamin B12 deficiency, on replacement therapy. 8. History of prostate and colon cancer, stable. 9. History of penile implant, stable. 10. Chronic ischemic cardiomyopathy, stable. 11. Reconcile home medications. Noncompliance. LEVEL OF DOCUMENTATION: 35 minutes. cc: Dennis Chiu MD
[2016-12-17] MEDS: FOLIC ACID 5 MG in NS 50 ML IV SCH (22:14)
[2016-12-17] MEDS: THIAMINE 100 MG in NS 50 ML IV SCH (22:14)
[2016-12-18] MEDS: DUONEB (A & A) INH SCH ×6 (03:34→23:20)
[2016-12-18] MEDS: ROCEPHIN 1 GM in NS 50 ML IV SCH (05:15)
[2016-12-18] MEDS: ZITHROMAX 500 MG/NS 500 MG/250 ML IVPB IV SCH (06:03)
[2016-12-18] MEDS: HUMULIN R SUBQ SCH ×3 (06:03→16:38)
[2016-12-18 07:34] LABS: BASO% 1.5 % (0.0-0.8); EOS% 3.8 % (0.0-10.0); HEMATOCRIT 34.5 % (42.0-52.0); HEMOGLOBIN 10.9 g/dL (14.0-18.0); LYMPH# 1.37 X1000 (1.2-3.4); LYMPH% 51.5 % (20.5-51.1); MANUAL DIFF NEEDED? YES; MCHC 31.6 g/dL (33-37); MCV 91.8 FL (81-99); MONO# 0.54 X1000 (0.11-0.59); MONO% 20.3 % (1.7-9.3); MPV 10.1 FL (7.4-10.4); NEUT% 22.9 % (42.2-75.2); PLT 161 X1000 (130-400); RBC 3.76 XMIL (4.7-6.1)
[2016-12-18 07:53] LABS: CALCIUM 7.3 mg/dL (8.8-10.2); POTASSIUM 4.4 mmol/L (3.5-5.1)
[2016-12-18] MEDS: ISORDIL PO SCH (08:08)
[2016-12-18] MEDS: CORDARONE PO SCH (08:08)
[2016-12-18] MEDS: ASPIRIN EC PO SCH (08:08)
[2016-12-18] MEDS: ICAR-C PLUS PO SCH (08:08)
[2016-12-18] MEDS: COREG PO SCH ×2 (08:08→21:58)
[2016-12-18] MEDS: CYANOCOBALAMIN IM SCH (08:09)
[2016-12-18] MEDS: CULTURELLE PO SCH ×2 (08:09)
[2016-12-18 08:15] LABS: BANDS 10 % (0-1); LYMPHS 38 % (21-51); MONO 14 % (1-9)
[2016-12-18 08:16] LABS: HYPOCHROM 1+; LARGE PLATELETS 1+
[2016-12-18] MEDS: CLINIMIX E 4.25%-5% SOLUTION 1,000 ML IV SCH (13:39)
--- NOTE | 2016-12-18 13:42 | PROGRESS NOTE ---
DATE: 12/18/2016 SUBJECTIVE: The patient is doing very well. Not offering any complaints. REVIEW OF SYSTEMS: None reported. PHYSICAL EXAMINATION: She is afebrile. Vitals are stable. 93% on room air. Input and output are positive. HEENT: Atraumatic, normocephalic. Pupils equal, reactive to light. TMs are normal. Nose and throat within normal limits. Neck is supple. No lymphadenopathy. Chest is clear. Heart sounds are regular. Belly is soft, nontender. Good bowel sounds. Right inguinal hernia present with implant. No neurological deficits. INVESTIGATIONS: CBC: White cell count 2.6, hematocrit 34, platelet 161,000. SMA-7 is normal. ASSESSMENT AND PLAN: 1. Left lower lobe pneumonia, very slight. Continue on ceftriaxone, Zithromax, and history of alcohol abuse. Watch for DTs. Continue on thiamine, folic acid, and Ativan as needed. 2. Protein calorie malnutrition. IV PPN. 3. Right inguinal hernia, stable. 4. Ischemic cardiomyopathy. PAF stable and continue on Cordarone, aspirin, and Coreg. Unable to tolerate the SEGUNDO inhibitors due to hyperkalemia and kidney function. Out of the bed with physical therapy with assistance. We will discuss with the family about the disposition. LEVEL OF DOCUMENTATION: 25 minutes. cc: Dennis Chiu MD
[2016-12-18] MEDS: THIAMINE 100 MG in NS 50 ML IV SCH (21:58)
[2016-12-18] MEDS: FOLIC ACID 5 MG in NS 50 ML IV SCH (21:58)
[2016-12-19] MEDS: ZITHROMAX 500 MG/NS 500 MG/250 ML IVPB IV SCH (02:15)
[2016-12-19] MEDS: ROCEPHIN 1 GM in NS 50 ML IV SCH (02:15)
[2016-12-19] MEDS: DUONEB (A & A) INH SCH ×6 (03:58→23:30)
[2016-12-19] MEDS: HUMULIN R SUBQ SCH ×5 (04:21→21:30)
[2016-12-19] MEDS: CYANOCOBALAMIN IM SCH (08:57)
[2016-12-19] MEDS: ASPIRIN EC PO SCH (08:57)
[2016-12-19] MEDS: CULTURELLE PO SCH ×2 (08:57→08:58)
[2016-12-19] MEDS: CORDARONE PO SCH (08:57)
[2016-12-19] MEDS: ICAR-C PLUS PO SCH (08:58)
[2016-12-19] MEDS: ISORDIL PO SCH (08:58)
[2016-12-19] MEDS: COREG PO SCH ×2 (08:58→21:01)
[2016-12-19] MEDS: CLINIMIX E 4.25%-5% SOLUTION 1,000 ML IV SCH ×2 (09:07→10:19)
--- NOTE | 2016-12-19 15:50 | PROGRESS NOTE ---
DATE: 12/19/2016 SUBJECTIVE: The patient is doing very well. No complaints. Eating well. No shortness of breath, chest pain, PND, orthopnea. No altered mental status. PHYSICAL EXAMINATION: Vital Signs: Hemodynamics are stable. Blood pressure is running low in the 80s. HEENT: Within normal limits. Chest: Clear. Heart: Sounds are regular. Abdomen: Belly is soft, nontender. Good bowel sounds. No masses palpable. Hernia noted on the right side. Neurologic: No neurological deficits. ASSESSMENT AND PLAN: 1. Left lower lobe pneumonia. Will repeat the chest x-ray, PA and lateral. Will continue incentive spirometry. Currently on IV Zithromax and ceftriaxone. 2. Azotemia, improving. 3. Ischemic cardiomyopathy, Paroxysmal atrial fibrillation. Stable on Cordarone, aspirin, Coreg. Unable to tolerate SEGUNDO inhibitors due to hyperkalemia, kidney failure. 4. Protein calorie malnutrition. On IV Clinimix. Continue on cyanocobalamin, folic acid, and thiamine. Will repeat the chest x-ray in the morning. We will discuss with the healthcare social worker for short-term rehab. He is noncompliant about drinking and smoking. No family was there. LEVEL OF DOCUMENTATION: 15 minutes. cc: Dennis Chiu MD
[2016-12-19] MEDS ORDERED: CALMOSEPTINE OINTMENT TOP PRN (18:17)
[2016-12-19] MEDS: FOLIC ACID 5 MG in NS 50 ML IV SCH (21:02)
[2016-12-19] MEDS: THIAMINE 100 MG in NS 50 ML IV SCH (21:37)
[2016-12-20] MEDS: ROCEPHIN 1 GM in NS 50 ML IV SCH (02:50)
[2016-12-20] MEDS: ZITHROMAX 500 MG/NS 500 MG/250 ML IVPB IV SCH (02:51)
[2016-12-20] MEDS: CLINIMIX E 4.25%-5% SOLUTION 1,000 ML IV SCH (02:52)
[2016-12-20] MEDS: DUONEB (A & A) INH SCH ×6 (03:25→23:00)
[2016-12-20] MEDS: HUMULIN R SUBQ SCH ×4 (06:05→21:26)
--- NOTE | 2016-12-20 06:21 | EKG Report ---
Test Performed on : 12/18/2016 05:15:00 AM Test Reason : cp Blood Pressure : / mmHG Vent. Rate : 071 BPM Atrial Rate : 071 BPM P-R Int : 190 ms QRS Dur : 102 ms QT Int : 480 ms P-R-T Axes : 067 066 067 degrees QTc Int : 521 ms Sinus rhythm. with occasional premature ventricular complexes. Nonspecific T wave abnormality Prolonged QT Abnormal ECG When compared with ECG of 24-OCT-2016 18:33, premature ventricular complexes. are now present GA interval has decreased Nonspecific T wave abnormality now evident in Inferior leads Nonspecific T wave abnormality has replaced inverted T waves in Anterolateral leads Confirmed by Eugene Soto MD ([id number]) on 12/22/2016 8:07:10 AM
[2016-12-20 07:36] LABS: CALCIUM 7.9 mg/dL (8.8-10.2); POTASSIUM 4.2 mmol/L (3.5-5.1)
--- NOTE | 2016-12-20 07:43 | Diag Imaging Result Doc PS360 ---
EXAM: CHEST-2 VIEWS HISTORY: hypoxia TECHNIQUE: COMPARISON: 12/16/2016 FINDINGS: There are infiltrates in the left base with atelectasis. There is also tiny left effusion. Heart is borderline mildly prominent. The vessels are not distended. Granuloma is found in the lower right lung. IMPRESSION: Left basilar atelectasis as well as a small infiltrate. Electronically signed by Jaiden Fink 12/20/2016 7:40 AM
[2016-12-20] MEDS: ASPIRIN EC PO SCH (10:17)
[2016-12-20] MEDS: ISORDIL PO SCH (10:17)
[2016-12-20] MEDS: ICAR-C PLUS PO SCH (10:17)
[2016-12-20] MEDS: CULTURELLE PO SCH ×2 (10:18)
[2016-12-20] MEDS: CORDARONE PO SCH (10:18)
[2016-12-20] MEDS: CYANOCOBALAMIN IM SCH (10:19)
[2016-12-20] MEDS: COREG PO SCH ×2 (10:20→21:25)
--- NOTE | 2016-12-20 21:24 | PROGRESS NOTE ---
DATE: 12/20/2016 SUBJECTIVE: The patient is doing very well. No productive cough, no fever. None reported. Review of systems: None reported. OBJECTIVE: Vital Signs: Afebrile. Vitals are stable. 96% room air. Input and output are positive 645. HEENT Exam: Within normal limits. Chest: Decreased breath sounds left base. Heart: Sounds are regular. Abdomen: Belly is soft, nontender. Good bowel sounds. No peripheral edema or cyanosis. No obvious neurological deficits. SMA 7: Sodium 140, potassium 4.2, chloride 109, BUN 26, creatinine 1.6, calcium 7.1. Urine cultures were negative. Chest x-ray: Possible left lower lobe pneumonia. ASSESSMENT AND PLAN: 1. Left lower lobe pneumonia improving. Continue on ceftriaxone and Zithromax. 2. History of alcohol abuse and tobacco abuse. No signs of delirium tremens noted. 3. Protein calorie malnutrition. IV total parenteral nutrition. 4. Out of the bed with physical therapy. We will discuss with the social sciences lecturer for rehab placement next 48 hours. LEVEL OF DOCUMENTATION: 15 minutes. cc: Dennis Chiu MD
[2016-12-20] MEDS: THIAMINE 100 MG in NS 50 ML IV SCH (21:26)
[2016-12-20] MEDS: FOLIC ACID 5 MG in NS 50 ML IV SCH (21:26)
[2016-12-21] MEDS: ROCEPHIN 1 GM in NS 50 ML IV SCH (01:25)
[2016-12-21] MEDS: CLINIMIX E 4.25%-5% SOLUTION 1,000 ML IV SCH ×2 (01:26→18:43)
[2016-12-21] MEDS: DUONEB (A & A) INH SCH ×6 (02:33→22:33)
[2016-12-21] MEDS: ZITHROMAX 500 MG/NS 500 MG/250 ML IVPB IV SCH (03:25)
[2016-12-21] MEDS: HUMULIN R SUBQ SCH ×4 (06:04→23:17)
[2016-12-21] MEDS: ICAR-C PLUS PO SCH (10:02)
[2016-12-21] MEDS: ASPIRIN EC PO SCH (10:02)
[2016-12-21] MEDS: CULTURELLE PO SCH ×3 (10:02→14:38)
[2016-12-21] MEDS: CORDARONE PO SCH (10:02)
[2016-12-21] MEDS: COREG PO SCH ×2 (10:02→23:15)
[2016-12-21] MEDS: ISORDIL PO SCH (10:03)
[2016-12-21] MEDS: CYANOCOBALAMIN IM SCH (10:03)
[2016-12-21] MEDS: THIAMINE 100 MG in NS 50 ML IV SCH (20:03)
[2016-12-21] MEDS: FOLIC ACID 5 MG in NS 50 ML IV SCH (20:03)
--- NOTE | 2016-12-21 21:05 | PROGRESS NOTE ---
DATE: 12/21/2016 SUBJECTIVE: Patient is doing very well still bedridden, eating well without assistance. REVIEW OF SYSTEMS: None reported. PHYSICAL EXAMINATION: Vital signs: Afebrile. Vitals are stable. Input and output are positive 126 mL . HEENT: Within normal limits. Neck: Supple. Chest: Clear. Heart: Sounds are regular. ASSESSMENT AND PLAN: Left lower lobe pneumonia is better stable, impending delirium tremens stable, patient is medically stable. Discussed with the transition social worker for rehab placement. LEVEL OF DOCUMENTATION: 15 minutes. cc: Dennis Chiu MD
[2016-12-22] MEDS: ROCEPHIN 1 GM in NS 50 ML IV SCH ×2 (01:00→06:43)
[2016-12-22] MEDS: ZITHROMAX 500 MG/NS 500 MG/250 ML IVPB IV SCH (01:10)
[2016-12-22] MEDS: DUONEB (A & A) INH SCH ×6 (03:25→23:20)
[2016-12-22] MEDS: HUMULIN R SUBQ SCH ×4 (07:10→20:38)
[2016-12-22] MEDS: COREG PO SCH ×2 (08:55→23:04)
[2016-12-22] MEDS: CULTURELLE PO SCH ×2 (08:55)
[2016-12-22] MEDS: CYANOCOBALAMIN IM SCH (08:55)
[2016-12-22] MEDS: ICAR-C PLUS PO SCH (08:55)
[2016-12-22] MEDS: CORDARONE PO SCH (08:55)
[2016-12-22] MEDS: ASPIRIN EC PO SCH (08:55)
[2016-12-22] MEDS: ISORDIL PO SCH (08:56)
[2016-12-22] MEDS: CLINIMIX E 4.25%-5% SOLUTION 1,000 ML IV SCH (18:09)
--- NOTE | 2016-12-22 19:42 | DISCHARGE SUMMARY ---
ADMISSION DATE: 12/16/2016 DISCHARGE DATE: 12/23/2016 DISCHARGING DIAGNOSIS: Left lower lobe pneumonia. SECONDARY DIAGNOSES: 1. Chronic kidney disease. 2. Paroxysmal atrial fibrillation. 3. History of alcohol abuse. 4. History of tobacco abuse. 5. Type 2 diabetes. 6. Vitamin B12 deficiency. 7. Hyperkalemia due to angiotensin-converting enzyme inhibitors. 8. History of prostate cancer, in remission. 9. History of colon cancer. Stable. 10. Resolving aspiration pneumonia in the right upper lobe. 11. Right inguinal hernia. Complete. 12. History of penile implant. 13. History of chronic systolic heart failure with ejection fraction 35% with ischemic cardiomyopathy. 14. History of noncompliance. BRIEF HISTORY: Please see the H and P that was done by hospitalist. In brief, he is a 76-year- old male who was discharged in October and doing very well. Noncompliant, drinking and smoking. He was brought into the hospital with altered mental status, coughing, weakness. Patient was found to have a slight infiltrate in the left lower lobe. HOSPITAL COURSE: Patient was given IV antibiotics with ceftriaxone, Zithromax and IV PPN. He was also given thiamine, folic acid and watched for impending DTs. The patient was tolerating the diet very well. Rest of the hospital course was uneventful. LABORATORIES AND IMAGING: CBC: White cell count 2.6, hematocrit 34, platelet 161,000. SMA7: Sodium 140, potassium 4.2, chloride 101, BUN 26, creatinine 1.6, glucose 109. Urinalysis is clear. Chest x-ray slightly improving. Patient also has health issues and at the request of the family, he has been transferred to rehab. DISCHARGE INSTRUCTIONS: Pneumococcal vaccine 09/19/2014. Oxygen as needed. Isosorbide 10 mg daily. Coreg 6.25, 3.125 mg p.o. b.i.d., Cordarone 200 daily, aspirin 80 mg daily, Culturelle 1 tablet daily, Icar C Plus 1 tablet daily. Discontinue NSAIDs, SEGUNDO inhibitors due to hyperkalemia. Tylenol as needed for pain. Levaquin 250 mg once daily for 10 days. Probiotics 1 tablet daily. Follow up in my office in 2 weeks. cc: MD KEVEN Lemus
[2016-12-22] MEDS: FOLIC ACID 5 MG in NS 50 ML IV SCH (20:31)
--- NOTE | 2016-12-22 22:42 | PROGRESS NOTE ---
DATE: 12/22/2016 SUBJECTIVE: The patient is doing very well. Not able to get up. Developed a stage I pressure ulcer. REVIEW OF SYSTEMS: None reported. PHYSICAL EXAMINATION: Vital signs: Afebrile. Vitals are stable. Chest: Clear. Heart: Sounds are regular. Abdomen: Belly is soft, nontender. Good bowel sounds. Right inguinal hernia present. LABORATORY: Urine cultures are negative. ASSESSMENT AND PLAN: 1. Left lower lobe pneumonia is getting better. 2. Stage I pressure ulcer. Continue Wound Care consult. 3. Continue present medical therapy. Discussed with social welfare administrator and transfer to the rehab. Paperwork for daughter to get a Medicaid application. LEVEL OF DOCUMENTATION: 15 minutes. cc: Dennis Chiu MD
[2016-12-22] MEDS: THIAMINE 100 MG in NS 50 ML IV SCH (23:00)
[2016-12-23] MEDS: ROCEPHIN 1 GM in NS 50 ML IV SCH (02:09)
[2016-12-23] MEDS: ZITHROMAX 500 MG/NS 500 MG/250 ML IVPB IV SCH (02:48)
[2016-12-23] MEDS: DUONEB (A & A) INH SCH ×4 (03:25→15:38)
[2016-12-23] MEDS: HUMULIN R SUBQ SCH ×2 (06:31→11:00)
[2016-12-23 08:14] VITALS: BP 89/45
[2016-12-23] MEDS: ISORDIL PO SCH (09:30)
[2016-12-23] MEDS ORDERED: INSULIN PEN NEEDLES ONE (09:30)
[2016-12-23] MEDS: COREG PO SCH (09:30)
[2016-12-23] MEDS: CULTURELLE PO SCH ×2 (09:30)
[2016-12-23] MEDS: ASPIRIN EC PO SCH (09:30)
[2016-12-23] MEDS: ICAR-C PLUS PO SCH (09:30)
[2016-12-23] MEDS: CORDARONE PO SCH (09:30)
== END 2016-12-23 16:23 ==
LOC: ED 16:17 → SUATTDRO 23:36 → EDIPHOLD 23:36 → 3N 12-17 16:02
PROVIDERS: ADMIT Internal Medicine; ATTEND Internal Medicine